=== PATIENT | male | born 1940 | race Caucasian/White ===

== ENCOUNTER 2021-08-08 07:03 | Inpatient (IN) | payer BC ==
[~2021-08-08] VITALS: Ht 177.8 cm; Wt 110.0 kg
[2021-08-08] VITALS (7 sets, daily range): BP systolic 89–138; BP diastolic 58–76
[2021-08-08] MEDS ORDERED: fentaNYL PF VIAL 100 MCG/2 ML VIAL IVP ONE (07:15)
--- NOTE | 2021-08-08 07:18 | ED.ADGEN ---
General Adult EDM: Chief Complaint: MECHANICAL FALL HPI: HPI: Patient is a 80 year old male coming in via EMS from home for right hip pain. Patient states he was going out to get the newspaper and lost his balance fell to his right side. Patient denies any head injury or loss conscious. Patient does not take medication but also does not see a provider regularly. Denies any history of prior injury to his right hip. Review of Systems: Review of Systems: All other systems within normal limits except for as noted in the HPI Current Medications: Current Medications Medications (Trade) Dose Ordered Sig/Mayra Start Time Stop Time Status Last Admin Dose Admin Diphtheria/ Tetanus/Acell Pertussis (Boostrix) 0.5 ml ONCE ONCE 08/08/21 07:30 08/08/21 07:31 DC 08/08/21 07:34 0.5 ML Fentanyl Citrate (Fentanyl 2ml Vial) 75 mcg 1X ONCE 08/08/21 07:15 08/08/21 07:16 DC 08/08/21 07:32 75 MCG Allergies: Allergies: Allergies Coded Allergies Type Severity Reaction Last Updated Verified No Known Drug Allergies 08/08/21 No Physical Exam: PE: Constitutional: Well developed, well nourished, no acute distress, non-toxic a ppearance. [] HENT: Normocephalic, atraumatic, bilateral external ears normal, nose normal. [] Eyes: PERRLA, conjunctiva normal, no discharge. [] Neck: No rigidity, supple, no stridor. [] Cardiovascular: Regular rate and rhythm, brisk cap refill [] Lungs & Thorax: Non labored symmetric respirations, no tachypnea or respiratory distress. No chest wall tenderness pulm [] Abdomen: Soft, nondistended, nontender to palp. Skin: Warm, dry, no erythema, no rash. Skin tear on right forearm [] Back: Unremarkable Extremities: No deformities, range of motion grossly intact, no lower extremity edema. Right lower extremity externally rotated and shortened. Tenderness palpation of right hip and right knee. Neurovascular intact in distal right lower extremity. Neurologic: Alert and oriented X 3, no focal deficits noted. [] Psychologic: Affect normal, judgement normal, mood normal. [] Current Patient Data: Labs: Laboratory Tests Test 08/08/21 07:15 08/08/21 07:36 White Blood Count 7.4 x10^3/uL (4.0-11.0) Red Blood Count 5.21 x10^6/uL (4.30-5.70) Hemoglobin 16.9 g/dL (13.0-17.5) Hematocrit 48.9 % (39.0-53.0) Mean Corpuscular Volume 94 fL (79-100) Mean Corpuscular Hemoglobin 32 pg (25-35) Mean Corpuscular Hemoglobin Concent 35 g/dL (31-37) Red Cell Distribution Width 13.1 % (11.5-14.5) Platelet Count 167 x10^3/uL (140-400) Neutrophils (%) (Auto) 71 % (31-73) Lymphocytes (%) (Auto) 20 % (24-48) L Monocytes (%) (Auto) 8 % (0-9) Eosinophils (%) (Auto) 1 % (0-3) Basophils (%) (Auto) 0 % (0-3) Neutrophils # (Auto) 5.2 x10^3/uL (1.8-7.7) Lymphocytes # (Auto) 1.5 x10^3/uL (1.0-4.8) Monocytes # (Auto) 0.6 x10^3/uL (0.0-1.1) Eosinophils # (Auto) 0.1 x10^3/uL (0.0-0.7) Basophils # (Auto) 0.0 x10^3/uL (0.0-0.2) Prothrombin Time 13.4 SEC (11.7-14.0) Prothrombin Time INR 1.1 (0.8-1.1) Sodium Level 136 mmol/L (136-145) Potassium Level 4.6 mmol/L (3.5-5.1) Chloride Level 104 mmol/L (98-107) Carbon Dioxide Level 25 mmol/L (21-32) Anion Gap 7 (6-14) Blood Urea Nitrogen 16 mg/dL (8-26) Creatinine 1.3 mg/dL (0.7-1.3) Estimated GFR (Cockcroft-Gault) 52.9 BUN/Creatinine Ratio 12 (6-20) Glucose Level 96 mg/dL (70-99) Calcium Level 8.4 mg/dL (8.5-10.1) L Total Bilirubin 0.7 mg/dL (0.2-1.0) Aspartate Amino Transferase (AST) 18 U/L (15-37) Alanine Aminotransferase (ALT) 16 U/L (16-63) Alkaline Phosphatase 97 U/L (46-116) XW-Bqi-C-Type Natriuretic Peptide 218 pg/mL (0-449) Total Protein 7.8 g/dL (6.4-8.2) Albumin 3.2 g/dL (3.4-5.0) L Albumin/Globulin Ratio 0.7 (1.0-1.7) L Influenza Type A Antigen Negative (NEGATIVE) Influenza Type B Antigen Negative (NEGATIVE) SARS-CoV-2 Antigen (Rapid) Negative (NEGATIVE) Laboratory Tests 08/08/21 07:15 Laboratory Tests 08/08/21 07:15 Vital Signs: Vital Signs Date Time Temp Pulse Resp B/P (MAP) Pulse Ox O2 Delivery O2 Flow Rate FiO2 08/08/21 07:32 16 08/08/21 07:20 78 162/80 (107) 98 Room Air 08/08/21 07:03 97.8 97.8 EKG: EKG: Sinus rhythm, heart rate 70s per minute, normal axis, no STEMI [] Heart Score: C/O Chest Pain: No Risk Factors: Risk Factors: DM, Current or recent (<one month) smoker, HTN, HLP, family history of CAD, obesity. Risk Scores: Score 0 - 3: 2.5% MACE over next 6 weeks - Discharge Home Score 4 - 6: 20.3% MACE over next 6 weeks - Admit for Clinical Observation Score 7 - 10: 72.7% MACE over next 6 weeks - Early Invasive Strategies Radiology/Procedures: Radiology/Procedures: [facility] [address] [place], [place] [id number] IMAGING REPORT Signed PATIENT: JOSÉ MIGUEL REED ACCOUNT: [id number] : 1940 LOCATION: ER AGE: 80 SEX: M EXAM STATUS: REG ER ORD. PHYSICIAN: MARK SANON MD REASON: fracture EVAL PROCEDURE: CT PELVIS WO CONTRAST CT scan of the pelvis without contrast 08/08/2021 CLINICAL HISTORY: Fall. Right hip pain. Right femoral neck fracture seen on radiographs of the pelvis. TECHNIQUE: Unenhanced contiguous, 0.625 mm axial sections were obtained through the pelvis and both hips. 3 mm reconstructed sagittal, axial and coronal images were obtained. One or more of the following individualized dose reduction techniques were utilized for this study: 1. Automated exposure control. 2. Adjustment of the mA and/or kV according to patient size. 3. Use of iterative reconstruction technique. FINDINGS: Comparison is made to radiographs of the right hip performed earlier today. There is diffuse osteopenia the visualized bony structures. An acute comminuted subcapital fracture of the right femoral neck is seen. The fracture fragments are slightly impacted inferiorly. The major distal fracture fragment is displaced anteriorly, laterally and slightly superiorly. No dislocation is seen. No additional fracture is noted. Moderate degenerative changes are seen involving the visualized lumbar spine. Moderate degenerative changes are seen involving both SI joints. Mild to moderate degenerative changes are seen involv ing both hips. The left hip is intact. Atherosclerotic calcification of the distal abdominal aorta and its branches is seen. The prostate gland is enlarged likely related to BPH. Calcifications are seen within the pelvis consistent phleboliths. IMPRESSION: Acute comminuted subcapital fracture of the right femoral neck as discussed above. Electronically signed by: John Julian MD (08/08/2021 8:32 AM) [id number] DICTATED and SIGNED BY: JOHN JULIAN MD DATE: 08/08/21817 [][facility] [address] [place] [address] IMAGING REPORT Signed PATIENT: JOSÉ MIGUEL REED ACCOUNT: [id number] : 1940 LOCATION: ER AGE: 80 SEX: M EXAM STATUS: PRE ER ORD. PHYSICIAN: MARK SANON MD REASON: fall, rt knee pain PROCEDURE: KNEE RIGHT 2V XR KNEE_RT 1-2 VIEWS History: Reason: fall, rt knee pain / Spl. Instructions: / History: Technique: 2 views right knee Comparison: None. Findings: Moderate knee degenerative changes most prominent within the medial and patellofemoral compartment. Minimal knee joint effusion. No dislocation. No acute fracture. Impression: 1. No acute osseous abnormality. Electronically signed by: Kendell Tiwari DO (08/08/2021 7:49 AM) [id number] DICTATED and SIGNED BY: KENDELL TIAWRI DO DATE: 08/08/21 0748 [facility] [address] [place] [address] IMAGING REPORT Signed PATIENT: JOSÉ MIGUEL REED ACCOUNT: [id number] : 1940 LOCATION: ER AGE: 80 SEX: M EXAM STATUS: REG ER ORD. PHYSICIAN: MARK SANON MD REASON: fall PROCEDURE: CT HEAD AND CERVICAL SPINE WO CT HEAD AND C-SPINE WO Date: 08/08/2021 7:23 AM Clinical Indication: Pain, fall Comparison: None. Technique: 5 mm axial tomographic images were obtained of the head without contrast. These were viewed on brain and bone windows. Noncontrast CT of the cervical spine was performed. Sagittal and coronal reformats were performed and evaluated. One or more of the following dose reduction techniques were utilized: Automated exposure control (AEC), Adjustment of mA and/or kV according to patient size, Use of iterative reconstruction technique such as ASiR, CT scan done according to ALARA and image gently/image wisely HEAD FINDINGS: Mild generalized cerebral and cerebellar volume loss. Mild nonspecific perive ntricular hypoattenuation, most commonly seen with chronic small vessel ischemic disease. No intra- or extra-axial mass or fluid collection. No acute hemorrhage. The ventricles are normal in size, shape, and morphology. The urban-white matter junction is normal. The basilar cisterns are patent. The visualized paranasal sinuses are normal. The visualized portions of the orbits and globes are normal. The mastoid air cells are clear. No aggressive osseous lesion or fracture. CERVICAL SPINE FINDINGS: Postsurgical changes of multilevel posterior decompression with posterior instrumentation at C3-C7 and ACDF at C5-C7 The cervical spine is normally aligned. No acute fracture. No aggressive lytic or blastic osseous lesions. Moderate multilevel degenerative disc space height loss. Multilevel moderate to severe spinal canal stenosis secondary to disc protrusions and marginal osteophytes. Multilevel moderate neuroforaminal narrowing secondary to uncovertebral arthrosis. Multilevel moderate facet arthrosis. The thyroid gland is normal. No cervical lymphadenopathy. Bilateral carotid at herosclerosis. The visualized aerodigestive tract is normal. The visualized portions of the lungs are clear. IMPRESSION: 1. No acute intracranial process. 2. No acute cervical spine fracture. Electronically signed by: Ashwini Cardona MD (08/08/2021 8:07 AM) [id number] DICTATED and SIGNED BY: ASHWINI CARDONA MD DATE: 08/08/21 [address] [place] [address] IMAGING REPORT Signed PATIENT: JOSÉ MIGUEL REED ACCOUNT: [id number] : 1940 LOCATION: ER AGE: 80 SEX: M EXAM STATUS: PRE ER ORD. PHYSICIAN: MARK SANON MD REASON: fall PROCEDURE: PORTABLE CHEST 1V XR CHEST 1V History: Reason: fall / Spl. Instructions: / History: . Pain Comparison: None. Findings: No consolidation or pleural effusion. Normal heart size. No pneumothorax. Impression: 1. No acute cardiopulmonary process. Electronically signed by: Kendell Tiwari DO (08/08/2021 7:45 AM) [id number] DICTATED and SIGNED BY: KENDELL TIWARI DO DATE: 08/08/21 0745 [place] [id number] IMAGING REPORT Signed PATIENT: JOSÉ MIGUEL REED ACCOUNT: [id number] : 1940 LOCATION: ER AGE: 80 SEX: M EXAM STATUS: PRE ER ORD. PHYSICIAN: MARK SANON MD REASON: fall,rt hip pain PROCEDURE: HIP RIGHT 2V WITH PELVIS XR RIGHT HIP (WITH OR WITHOUT PELVIS) 2 VIEWS History: Reason: fall,rt hip pain / Spl. Instructions: / History: Technique: AP view the pelvis and 2 additional views of the right hip. Comparison: None. Findings: Acute displaced overriding right femoral neck fracture. No dislocation. Lower lumbar spondylosis. Mild bilateral hip DJD. Impression: 1. Acute displaced right femoral neck fracture. Electronically signed by: Kendell Tiwari DO (08/08/2021 7:48 AM) [id number] DICTATED and SIGNED BY: KENDELL TIWARI DO DATE: 08/08/21 0746 Course & Med Decision Making: Course & Med Decision Making Pertinent Labs and Imaging studies reviewed. (See chart for details) Consult placed to Dr. Sonali Maldonado who will take the patient to the OR later today or tomorrow. Patient placed on n.p.o. status just in case. Mid to the hospitalist [] Zarina Disclaimer: Zarina Disclaimer: This electronic medical record was generated, in whole or in part, using a voice recognition dictation system. Departure Departure Impression: Primary Impression: Fall Additional Impression: Closed right hip fracture Disposition: ADMITTED INPATIENT Admitting Physician: THIEN Condition: STABLE Problem Qualifiers MARK SANON MD Aug 08, 2021 07:18
[2021-08-08] MEDS ORDERED: DIPHTH,PERTUSS(ACELL),TET TOX 0.5 ML DISP.SYRIN. VAX IM ONE (07:30)
[2021-08-08 07:31] LABS: BASO % 0 % (0-3); EOS # 0.1 x10^3/uL (0.0-0.7); EOS % 1 % (0-3); HEMATOCRIT 48.9 % (39.0-53.0); HEMOGLOBIN 16.9 g/dL (13.0-17.5); LYMPH # 1.5 x10^3/uL (1.0-4.8); LYMPH % 20 % (24-48); MEAN CORPUSCULAR HEMOGLOBIN 32 pg (25-35); MEAN CORPUSCULAR HGB CONC 35 g/dL (31-37); MEAN CORPUSCULAR VOLUME 94 fL (79-100); MONO # 0.6 x10^3/uL (0.0-1.1); MONO % 8 % (0-9); NEUT # 5.2 x10^3/uL (1.8-7.7); NEUT % 71 % (31-73); PLATELET COUNT 167 x10^3/uL (140-400); RED BLOOD COUNT 5.21 x10^6/uL (4.30-5.70); RED CELL DISTRIBUTION WIDTH 13.1 % (11.5-14.5); WHITE BLOOD COUNT 7.4 x10^3/uL (4.0-11.0)
[2021-08-08 07:40] LABS: CALCIUM 8.4 mg/dL (8.5-10.1); CREATININE 1.3 mg/dL (0.7-1.3); GFR 52.9; POTASSIUM 4.6 mmol/L (3.5-5.1)
[2021-08-08] MEDS ORDERED: PROMETHAZINE 12.5 MG TABLET. PO ONE (07:45)
[2021-08-08 07:46] LABS: ALBUMIN 3.2 g/dL (3.4-5.0); ALBUMIN/GLOBULIN RATIO 0.7 (1.0-1.7); TOTAL BILIRUBIN 0.7 mg/dL (0.2-1.0); TOTAL PROTEIN 7.8 g/dL (6.4-8.2)
--- NOTE | 2021-08-08 07:48 | RAD ---
XR CHEST 1V History: Reason: fall / Spl. Instructions: / History: . Pain Comparison: None. Findings: No consolidation or pleural effusion. Normal heart size. No pneumothorax. Impression: 1. No acute cardiopulmonary process. Electronically signed by: Kendell Tiwari DO (08/08/2021 7:45 AM) [id number]
--- NOTE | 2021-08-08 07:50 | RAD ---
XR RIGHT HIP (WITH OR WITHOUT PELVIS) 2 VIEWS History: Reason: fall,rt hip pain / Spl. Instructions: / History: Technique: AP view the pelvis and 2 additional views of the right hip. Comparison: None. Findings: Acute displaced overriding right femoral neck fracture. No dislocation. Lower lumbar spondylosis. Mil d bilateral hip DJD. Impression: 1. Acute displaced right femoral neck fracture. Electronically signed by: Kendell Tiwari DO (08/08/2021 7:48 AM) [id number]
--- NOTE | 2021-08-08 07:51 | RAD ---
XR KNEE_RT 1-2 VIEWS History: Reason: fall, rt knee pain / Spl. Instructions: / History: Technique: 2 views right knee Comparison: None. Findings: Moderate knee degenerative changes most prominent within the medial and patellofemoral compartment. M inimal knee joint effusion. No dislocation. No acute fracture. Impression: 1. No acute osseous abnormality. Electronically signed by: Kendell Tiwari DO (08/08/2021 7:49 AM) [id number]
--- NOTE | 2021-08-08 08:10 | RAD ---
CT HEAD AND C-SPINE WO Date: 08/08/2021 7:23 AM Clinical Indication: Pain, fall Comparison: None. Technique: 5 mm axial tomographic images were obtained of the head without contrast. These were view ed on brain and bone windows. Noncontrast CT of the cervical spine was performed. Sagittal and nielson l reformats were performed and evaluated. One or more of the following dose reduction techniques were utilized: Automated exposure control (AEC), Adjustment of mA and/or kV according to patient size, Us e of iterative reconstruction technique such as ASiR, CT scan done according to ALARA and image gentl y/image wisely HEAD FINDINGS: Mild generalized cerebral and cerebellar volume loss. Mild nonspecific periventricular hypoattenuatio n, most commonly seen with chronic small vessel ischemic disease. No intra- or extra-axial mass or fluid collection. No acute hemorrhage. The ventricles are normal in size, shape, and morphology. The urban-white matter junction is normal. The basilar cisterns are paten t. The visualized paranasal sinuses are normal. The visualized portions of the orbits and globes are no rmal. The mastoid air cells are clear. No aggressive osseous lesion or fracture. CERVICAL SPINE FINDINGS: Postsurgical changes of multilevel posterior decompression with posterior instrumentation at C3-C7 an d ACDF at C5-C7 The cervical spine is normally aligned. No acute fracture. No aggressive lytic or blastic osseous les ions. Moderate multilevel degenerative disc space height loss. Multilevel moderate to severe spinal canal s tenosis secondary to disc protrusions and marginal osteophytes. Multilevel moderate neuroforaminal na rrowing secondary to uncovertebral arthrosis. Multilevel moderate facet arthrosis. The thyroid gland is normal. No cervical lymphadenopathy. Bilateral carotid atherosclerosis. The visu alized aerodigestive tract is normal. The visualized portions of the lungs are clear. IMPRESSION: 1. No acute intracranial process. 2. No acute cervical spine fracture. Electronically signed by: Zeke Joyner MD (08/08/2021 8:07 AM) [id number]
[2021-08-08 08:30] LABS: INFLUENZA A PATIENT NEGATIVE (NEGATIVE); INFLUENZA B PATIENT NEGATIVE (NEGATIVE)
--- NOTE | 2021-08-08 08:35 | RAD ---
CT scan of the pelvis without contrast 08/08/2021 CLINICAL HISTORY: Fall. Right hip pain. Right femoral neck fracture seen on radiographs of the pelvis . TECHNIQUE: Unenhanced contiguous, 0.625 mm axial sections were obtained through the pelvis and both h ips. 3 mm reconstructed sagittal, axial and coronal images were obtained. One or more of the following individualized dose reduction techniques were utilized for this study: 1. Automated exposure control. 2. Adjustment of the mA and/or kV according to patient size. 3. Use of iterative reconstruction technique. FINDINGS: Comparison is made to radiographs of the right hip performed earlier today. There is diffuse osteopenia the visualized bony structures. An acute comminuted subcapital fracture o f the right femoral neck is seen. The fracture fragments are slightly impacted inferiorly. The major distal fracture fragment is displaced anteriorly, laterally and slightly superiorly. No dislocation i s seen. No additional fracture is noted. Moderate degenerative changes are seen involving the visuali zed lumbar spine. Moderate degenerative changes are seen involving both SI joints. Mild to moderate d egenerative changes are seen involving both hips. The left hip is intact. Atherosclerotic calcificati on of the distal abdominal aorta and its branches is seen. The prostate gland is enlarged likely rela bam to BPH. Calcifications are seen within the pelvis consistent phleboliths. IMPRESSION: Acute comminuted subcapital fracture of the right femoral neck as discussed above. Electronically signed by: John Julian MD (08/08/2021 8:32 AM) [id number]
[2021-08-08] MEDS ORDERED: HYDROmorphone 2 MG/ML INJ. IVP ONE (08:45)
[2021-08-08 08:49] LABS: PROTHROMBIN TIME PATIENT 13.4 SEC (11.7-14.0)
[2021-08-08] MEDS: IV NORMAL SALINE 1000ML BAG 1,000 ML IV SCH ×4 (08:54→20:05)
[2021-08-08] MEDS ORDERED: ONDANSETRON PF 4 MG/2 ML VIAL. IVP PRN ×2 (09:00→10:30)
[2021-08-08] MEDS ORDERED: HYDROmorphone 2 MG/ML INJ. IVP PRN ×3 (09:00→12:15)
--- NOTE | 2021-08-08 10:23 | PDOC1 ---
History and Physical Date of Service: DOS: DATE: 08/08/21 TIME: 10:23 Chief Complaint: Chief Complain: Fall with right hip pain History of Present Illness: HPI: 80-year-old male with no significant past medical history comes in for right hip pain after he lost his balance and fell on his right side while he was try to get his newspaper. Denies any head trauma or loss of consciousness. Does not t solitario any medications or see his primary doctor regularly. Denies any fevers, chest pain, abdominal pain, dizziness, syncope, palpitations, dysuria, hematuria or bloody stools. Past Medical/Surgical History: PMH/PSH: Denies any past medical or surgical history Allergies: Allergies: Coded Allergies: No Known Drug Allergies (Unverified , 08/08/21) Family History: Family History: Reviewed with no relative findings in the chart Social History: Social History: Denies any alcohol, tobacco or drug abuse Current Medications: Current Medications Current Medications Fentanyl Citrate (Fentanyl 2ml Vial) 75 mcg 1X ONCE IVP Last administered on 08/08/21at 07:32; Start 08/08/21 at 07:15; Stop 08/08/21 at 07:16; Status DC Diphtheria/ Tetanus/Acell Pertussis (Boostrix) 0.5 ml ONCE ONCE VAX IM Last administered on 08/08/21at 07:34; Start 08/08/21 at 07:30; Stop 08/08/21 at 07:31; Status DC Promethazine HCl (Phenergan) 25 mg 1X ONCE PO ; Start 08/08/21 at 07:45; Stop 08/08/21 at 07:53; Status DC Hydromorphone HCl (Dilaudid) 1 mg 1X ONCE IVP Last administered on 08/08/21at 08:54; Start 08/08/21 at 08:45; Stop 08/08/21 at 08:48; Status DC Ondansetron HCl (Zofran) 4 mg PRN Q8HRS PRN IVP NAUSEA/VOMITING; Start 08/08/21 at 09:00; Stop 08/09/21 at 08:59 Sodium Chloride 1,000 ml @ 100 mls/hr Q10H IV Last administered on 08/08/21at 08:54; Start 08/08/21 at 09:00; Stop 08/09/21 at 08:59 Hydromorphone HCl (Dilaudid) 1 mg PRN Q2HRS PRN IVP MODERATE TO SEVERE PAIN; Start 08/08/21 at 09:00 ROS: Review of Systems Review of System REVIEW OF SYSTEMS: GENERAL: Denies weakness SKIN: No bruising, hair changes or rashes. EYES: No blurred, double or loss of vision. NOSE AND THROAT: No history of nosebleeds, hoarseness or sore throat. HEART: No history of palpitations, chest pain or shortness of breath on exertion. LUNGS: Denies cough, hemoptysis, wheezing or shortness of breath. GASTROINTESTINAL: Denies changes in appetite, nausea, vomiting, diarrhea or constipation. GENITOURINARY: No history of frequency, urgency, hesitancy or nocturia. NEUROLOGIC: Denies history of numbness, tingling, or tremor. PSYCHIATRIC: No history of panic, anxiety or depression. ENDOCRINE: No history of heat or cold intolerance, polyuria or polydipsia. EXTREMITIES: Denies joint pain, pain on walking or stiffness. Physical Exam: Vital Signs: Vital Signs Date Time Temp Pulse Resp B/P (MAP) Pulse Ox O2 Delivery O2 Flow Rate FiO2 08/08/21 09:25 98.7 91 18 127/76 (93) 93 Room Air 98.7 Physcial Exam: GEN: No apparent distress. Alert and oriented HEENT: Normal cephalic, atraumatic, external auditory canals are patent EYES: Extraocular muscles are intact, pupil are equally round and reactive to light and accommodation MUSCULOSKELETAL: Well developed , well nourished, good range of motion ENDOCRINE: No thyromegaly was palpated LYMPHATICS: No cervical chain or axillary nodes were noted HEMATOPOIETIC: No bruising NECK: Supple, no JVD, no thyromegaly was noted LUNGS: Clear to auscultation in all lung anders without rhonchi or wheezing HEART: RRR, S!, S2 present. Peripheral pulses intact, no obvious murmurs noted ABDOMEN: Soft, nontender. Positive bowel sounds, no organomegaly, normal bowel sounds EXTREMITIES: Without clubbing, cyanosis, or edema. Pedal pulses intact. Negative Homans sign NEUROLOGIC: Normal speech and tone. A&O x 3, moves all extremities, no obvious focal deficits PSYCHIATRIC: Normal affect, normal mood. Stable SKIN: No ulcerations or rashes, good skin turgor, no jaundice VASCULAR: Good capillary refill, neurovascular bundle appears to be intact Labs: Labs: Laboratory Tests Test 08/08/21 07:15 08/08/21 07:36 White Blood Count 7.4 x10^3/uL (4.0-11.0) Red Blood Count 5.21 x10^6/uL (4.30-5.70) Hemoglobin 16.9 g/dL (13.0-17.5) Hematocrit 48.9 % (39.0-53.0) Mean Corpuscular Volume 94 fL (79-100) Mean Corpuscular Hemoglobin 32 pg (25-35) Mean Corpuscular Hemoglobin Concent 35 g/dL (31-37) Red Cell Distribution Width 13.1 % (11.5-14.5) Platelet Count 167 x10^3/uL (140-400) Neutrophils (%) (Auto) 71 % (31-73) Lymphocytes (%) (Auto) 20 % (24-48) Monocytes (%) (Auto) 8 % (0-9) Eosinophils (%) (Auto) 1 % (0-3) Basophils (%) (Auto) 0 % (0-3) Neutrophils # (Auto) 5.2 x10^3/uL (1.8-7.7) Lymphocytes # (Auto) 1.5 x10^3/uL (1.0-4.8) Monocytes # (Auto) 0.6 x10^3/uL (0.0-1.1) Eosinophils # (Auto) 0.1 x10^3/uL (0.0-0.7) Basophils # (Auto) 0.0 x10^3/uL (0.0-0.2) Prothrombin Time 13.4 SEC (11.7-14.0) Prothromb Time International Ratio 1.1 (0.8-1.1) Sodium Level 136 mmol/L (136-145) Potassium Level 4.6 mmol/L (3.5-5.1) Chloride Level 104 mmol/L (98-107) Carbon Dioxide Level 25 mmol/L (21-32) Anion Gap 7 (6-14) Blood Urea Nitrogen 16 mg/dL (8-26) Creatinine 1.3 mg/dL (0.7-1.3) Estimated GFR (Cockcroft-Gault) 52.9 BUN/Creatinine Ratio 12 (6-20) Glucose Level 96 mg/dL (70-99) Calcium Level 8.4 mg/dL (8.5-10.1) Total Bilirubin 0.7 mg/dL (0.2-1.0) Aspartate Amino Transf (AST/SGOT) 18 U/L (15-37) Alanine Aminotransferase (ALT/SGPT) 16 U/L (16-63) Alkaline Phosphatase 97 U/L (46-116) PY-Xqq-T-Type Natriuretic Peptide 218 pg/mL (0-449) Total Protein 7.8 g/dL (6.4-8.2) Albumin 3.2 g/dL (3.4-5.0) Albumin/Globulin Ratio 0.7 (1.0-1.7) Influenza Type A Antigen Negative (NEGATIVE) Influenza Type B Antigen Negative (NEGATIVE) SARS-CoV-2 Antigen (Rapid) Negative (NEGATIVE) Laboratory Tests Test 08/08/21 07:15 08/08/21 07:36 White Blood Count 7.4 x10^3/uL (4.0-11.0) Red Blood Count 5.21 x10^6/uL (4.30-5.70) Hemoglobin 16.9 g/dL (13.0-17.5) Hematocrit 48.9 % (39.0-53.0) Mean Corpuscular Volume 94 fL (79-100) Mean Corpuscular Hemoglobin 32 pg (25-35) Mean Corpuscular Hemoglobin Concent 35 g/dL (31-37) Red Cell Distribution Width 13.1 % (11.5-14.5) Platelet Count 167 x10^3/uL (140-400) Neutrophils (%) (Auto) 71 % (31-73) Lymphocytes (%) (Auto) 20 % (24-48) Monocytes (%) (Auto) 8 % (0-9) Eosinophils (%) (Auto) 1 % (0-3) Basophils (%) (Auto) 0 % (0-3) Neutrophils # (Auto) 5.2 x10^3/uL (1.8-7.7) Lymphocytes # (Auto) 1.5 x10^3/uL (1.0-4.8) Monocytes # (Auto) 0.6 x10^3/uL (0.0-1.1) Eosinophils # (Auto) 0.1 x10^3/uL (0.0-0.7) Basophils # (Auto) 0.0 x10^3/uL (0.0-0.2) Prothrombin Time 13.4 SEC (11.7-14.0) Prothromb Time International Ratio 1.1 (0.8-1.1) Sodium Level 136 mmol/L (136-145) Potassium Level 4.6 mmol/L (3.5-5.1) Chloride Level 104 mmol/L (98-107) Carbon Dioxide Level 25 mmol/L (21-32) Anion Gap 7 (6-14) Blood Urea Nitrogen 16 mg/dL (8-26) Creatinine 1.3 mg/dL (0.7-1.3) Estimated GFR (Cockcroft-Gault) 52.9 BUN/Creatinine Ratio 12 (6-20) Glucose Level 96 mg/dL (70-99) Calcium Level 8.4 mg/dL (8.5-10.1) Total Bilirubin 0.7 mg/dL (0.2-1.0) Aspartate Amino Transf (AST/SGOT) 18 U/L (15-37) Alanine Aminotransferase (ALT/SGPT) 16 U/L (16-63) Alkaline Phosphatase 97 U/L (46-116) IN-Mhd-X-Type Natriuretic Peptide 218 pg/mL (0-449) Total Protein 7.8 g/dL (6.4-8.2) Albumin 3.2 g/dL (3.4-5.0) Albumin/Globulin Ratio 0.7 (1.0-1.7) Influenza Type A Antigen Negative (NEGATIVE) Influenza Type B Antigen Negative (NEGATIVE) SARS-CoV-2 Antigen (Rapid) Negative (NEGATIVE) Images: Images PROCEDURE: CT PELVIS WO CONTRAST CT scan of the pelvis without contrast 08/08/2021 CLINICAL HISTORY: Fall. Right hip pain. Right femoral neck fracture seen on radiographs of the pelvis. TECHNIQUE: Unenhanced contiguous, 0.625 mm axial sections were obtained through the pelvis and both hips. 3 mm reconstructed sagittal, axial and coronal images were obtained. One or more of the following individualized dose reduction techniques were utilized for this study: 1. Automated exposure control. 2. Adjustment of the mA and/or kV according to patient size. 3. Use of iterative reconstruction technique. FINDINGS: Comparison is made to radiographs of the right hip performed earlier today. There is diffuse osteopenia the visualized bony structures. An acute comminuted subcapital fracture of the right femoral neck is seen. The fracture fragments are slightly impacted inferiorly. The major distal fracture fragment is displaced anteriorly, laterally and slightly superiorly. No dislocation is seen. No additional fracture is noted. Moderate degenerative changes are seen involving the visualized lumbar spine. Moderate degenerative changes are seen involving both SI joints. Mild to moderate degenerative changes are seen involving both hips. The left hip is intact. Atherosclerotic calcification of the distal abdominal aorta and its branches is seen. The prostate gland is enlarged likely related to BPH. Calcifications are seen within the pelvis consistent phleboliths. IMPRESSION: Acute comminuted subcapital fracture of the right femoral neck as discussed above. PROCEDURE: CT HEAD AND CERVICAL SPINE WO CT HEAD AND C-SPINE WO Date: 08/08/2021 7:23 AM Clinical Indication: Pain, fall Comparison: None. Technique: 5 mm axial tomographic images were obtained of the head without contrast. These were viewed on brain and bone windows. Noncontrast CT of the cervical spine was performed. Sagittal and coronal reformats were performed and evaluated. One or more of the following dose reduction techniques were utilized: Automated exposure control (AEC), Adjustment of mA and/or kV according to patient size, Use of iterative reconstruction technique such as ASiR, CT scan done according to ALARA and image gently/image wisely HEAD FINDINGS: Mild generalized cerebral and cerebellar volume loss. Mild nonspecific periventricular hypoattenuation, most commonly seen with chronic small vessel ischemic disease. No intra- or extra-axial mass or fluid collection. No acute hemorrhage. The ventricles are normal in size, shape, and morphology. The urban-white matter junction is normal. The basilar cisterns are patent. The visualized paranasal sinuses are normal. The visualized portions of the orbits and globes are normal. The mastoid air cells are clear. No aggressive osseous lesion or fracture. CERVICAL SPINE FINDINGS: Postsurgical changes of multilevel posterior decompression with posterior instrumentation at C3-C7 and ACDF at C5-C7 The cervical spine is normally aligned. No acute fracture. No aggressive lytic or blastic osseous lesions. Moderate multilevel degenerative disc space height loss. Multilevel moderate to severe spinal canal stenosis secondary to disc protrusions and marginal osteophytes. Multilevel moderate neuroforaminal narrowing secondary to uncovertebral arthrosis. Multilevel moderate facet arthrosis. The thyroid gland is normal. No cervical lymphadenopathy. Bilateral carotid atherosclerosis. The visualized aerodigestive tract is normal. The visualized portions of the lungs are clear. IMPRESSION: 1. No acute intracranial process. 2. No acute cervical spine fracture. PROCEDURE: PORTABLE CHEST 1V XR CHEST 1V History: Reason: fall / Spl. Instructions: / History: . Pain Comparison: None. Findings: No consolidation or pleural effusion. Normal heart size. No pneumothorax. Impression: 1. No acute cardiopulmonary process. Assessment/Plan Assessment/Plan Acute right femoral neck fracture status post mechanical fall Obesity class II Admit to hospitalist service for further management Ortho consult PT OT PO and IV pain control Lovenox for DVT prophylaxis, will deferred to orthopedics for outpatient DVT prophylaxis NPO CODE STATUS full Discussed with RN and SW Disposition inpatient management as above DPOA: Carley Escobar Justifications for Admission Other Justification Hip Fracture YUDITH NOYOLA MD Aug 08, 2021 10:23
[2021-08-08] MEDS ORDERED: diphenhydrAMINE HCL 25 MG CAPSULE PO PRN ×2 (10:30)
[2021-08-08] MEDS ORDERED: ACETAMINOPHEN 325 MG TABLET. PO PRN (10:30)
[2021-08-08] MEDS ORDERED: DEXTROSE 50% 25 GM / 50ML DISP.SYRIN. IV PRN ×2 (10:30→12:00)
[2021-08-08] MEDS ORDERED: SENNOSIDES 8.6 MG TABLET PO PRN (10:30)
[2021-08-08] MEDS ORDERED: MORPHINE SULFATE 2 MG/ML INJ. IV PRN (10:30)
[2021-08-08] MEDS ORDERED: PROCHLORPERAZINE 10 MG/2 ML VIAL. IV PRN (10:30)
[2021-08-08] MEDS ORDERED: ceFAZolin SODIUM IV Push 1 GM VIAL. IVP PRN (10:45)
--- NOTE | 2021-08-08 10:54 | PDOC2 ---
CONSULT Date of Consult Date of Consult DATE: 08/08/21 TIME: 10:42 Reason for Consult Reason for Consult: Right femoral neck fracture Referring Physician Referring Physician: ED physician Identification/Chief Complaint Chief Complaint Right hip pain History of Present Illness Reason for Visit: Praveen Escobar is a very pleasant 80-year-old male patient who presented to the emergency department at [facility] also noted this morning secondary to right hip pain following a ground-level fall from standing. Initial work-up in the emergency department found the patient to have a right femoral neck fracture. He was subsequently admitted to the hospitalist services and orthopedics was consulted for evaluation and management. Upon evaluation at bedside this morning patient is found to be awake and alert lying supine in bed. He is complaining of severe pain and discomfort to the right hip region. Pain is made worse with any type of weightbearing and/or movement of the right lower extremity. Relief with IV narcotic pain medication and rest. Patient denies any previous history of injury to the right hip in the past. No antecedent pain in the right hip prior to his fall. Patient states he was ambulating in his driveway earlier this morning at around 330 attempting to obtain the newspaper when he suddenly and unexpectedly fell from standing landing directly on his buttock. Patient denies striking his head and or sustaining any loss of consciousness. No antecedent chest pain, shortness of breath, dizziness, lightheadedness or palpitations prior to falling. He was unable to rise and ambulate. Emergency services were summoned to the home the patient was subsequently brought to the emergency department for further care. Patient reports he lives locally with his . He is independent of activities of daily living. He denies use of any assistive devices on a regular basis. Patient denies taking any oral blood thinning medications. He states his last oral intake was at approximately 330 this morning when he ate 3 cookies and drank a cup of coffee. Prior to his fall this morning patient states he was feeling rather well and in his normal state of health. No additional complaints are reported at this time. Past Medical History Past Medical History Denies Past Surgical History Past Surgical History Denies Family History Family History Noncontributory Social History Social History Patient is a local resident. He lives at home with his . He is retired. He denies use of any assistive devices. Current Problem List Problem List Problems Medical Problems: (1) Closed right hip fracture Status: Acute (2) Fall Status: Acute Current Medications Current Medications Current Medications Fentanyl Citrate (Fentanyl 2ml Vial) 75 mcg 1X ONCE IVP Last administered on 08/08/21at 07:32; Start 08/08/21 at 07:15; Stop 08/08/21 at 07:16; Status DC Diphtheria/ Tetanus/Acell Pertussis (Boostrix) 0.5 ml ONCE ONCE VAX IM Last administered on 08/08/21at 07:34; Start 08/08/21 at 07:30; Stop 08/08/21 at 07:31; Status DC Promethazine HCl (Phenergan) 25 mg 1X ONCE PO ; Start 08/08/21 at 07:45; Stop 08/08/21 at 07:53; Status DC Hydromorphone HCl (Dilaudid) 1 mg 1X ONCE IVP Last administered on 08/08/21at 08:54; Start 08/08/21 at 08:45; Stop 08/08/21 at 08:48; Status DC Ondansetron HCl (Zofran) 4 mg PRN Q8HRS PRN IVP NAUSEA/VOMITING; Start 08/08/21 at 09:00; Stop 08/09/21 at 08:59 Sodium Chloride 1,000 ml @ 100 mls/hr Q10H IV Last administered on 08/08/21at 08:54; Start 08/08/21 at 09:00; Stop 08/09/21 at 08:59 Hydromorphone HCl (Dilaudid) 1 mg PRN Q2HRS PRN IVP MODERATE TO SEVERE PAIN; Start 08/08/21 at 09:00 Sennosides (Senna) 17.2 mg PRN BID PRN PO CONSTIPATION; Start 08/08/21 at 10:30; Status UNV Docusate Sodium (Colace) 100 mg PRN DAILY PRN PO HARD STOOLS; Start 08/08/21 at 10:30; Status UNV Ondansetron HCl (Zofran) 4 mg PRN Q6HRS PRN IVP NAUSEA/VOMITING, 1st CHOICE; Start 08/08/21 at 10:30; Status UNV Dextrose (Dextrose 50%-Water Syringe) 12.5 gm PRN Q15MIN PRN IV SEE COMMENTS; Start 08/08/21 at 10:30; Status UNV Sodium Chloride 1,000 ml @ 100 mls/hr Q10H IV ; Start 08/08/21 at 10:30; Status UNV Acetaminophen (Tylenol) 650 mg PRN Q4HRS PRN PO TEMP OVER 100.4F OR MILD PAIN; Start 08/08/21 at 10:30; Status UNV Lorazepam (Ativan) 0.5 mg PRN Q6HRS PRN PO ANXIETY / AGITATION; Start 08/08/21 at 10:30; Status UNV Lorazepam (Ativan Inj) 0.25 mg PRN Q4HRS PRN IV ANXIETY / AGITATION; Start 08/08/21 at 10:30; Status UNV Enoxaparin Sodium (Lovenox 40mg Syringe) 40 mg Q24H SQ ; Start 08/08/21 at 10:30; Status UNV Oxycodone/ Acetaminophen (Percocet 5/325) 1 tab PRN Q4HRS PRN PO MILD PAIN, 1ST CHOICE; Start 08/08/21 at 10:30; Status UNV Morphine Sulfate (Morphine Sulfate) 1 mg PRN Q1HR PRN IV PAIN; Start 08/08/21 at 10:30; Status UNV Morphine Sulfate (Morphine Sulfate) 2 mg PRN Q2HR PRN IVP SEVERE PAIN 7-10; Start 08/08/21 at 10:30; Stop 08/09/21 at 10:29; Status UNV Prochlorperazine Edisylate (Compazine) 10 mg PRN Q6HRS PRN IV NAUSEA/VOMITING, 2nd CHOICE; Start 08/08/21 at 10:30; Status UNV Diphenhydramine HCl (Benadryl) 25 mg PRN Q6HRS PRN IVP ITCHING; Start 08/08/21 at 10:30; Status UNV Diphenhydramine HCl (Benadryl) 25 mg PRN Q6HRS PRN PO ITCHING; Start 08/08/21 at 10:30; Status UNV Diphenhydramine HCl (Benadryl) 25 mg PRN QHS PRN PO INSOMNIA, 1st CHOICE; Start 08/08/21 at 10:30; Status UNV Zolpidem Tartrate (Ambien) 2.5 mg PRN QHS PRN PO INSOMNIA, 2nd CHOICE; Start 08/08/21 at 10:30; Status UNV Allergies Allergies: Coded Allergies: No Known Drug Allergies (Unverified , 08/08/21) ROS Review of System A complete 10 point review of systems was performed and found to be negative with exception of those listed in HPI above. Physical Exam Physical Exam Orthopedic examination of the right lower extremity: Skin is warm dry and intact. No visible lacerations or abrasions are noted over the lateral aspect of the right hip. No visible ecchymosis. Right lower extremity shortened and externally rotated on gross inspection. Compartments are threadlike to be are soft compressible and nontender. Patient wiggles all toes on command. EHL/FHL intact. Plantarflexion/dorsiflexion intact. DP pulse present to palpation. Cap refill brisk. Right lower extremity is warm and well-perfused. Active and passive range of motion of the right hip is not assessed at this time due to known right femoral neck fracture and significant pain and discomfort with any type of movement. Remaining live orthopedic examination reveals: No bony tenderness to palpation bilateral upper extremities. Patient is able to actively range his bilateral upper extremities without any pain or discomfort. Neurovascularly intact bilateral upper extremities. No bony tenderness to palpation bilateral clavicles. No bony tenderness to palpation bilateral chest wall. Pelvis is stable to AP and lateral compression. Tenderness palpation over the lateral aspect of the right hip. Negative pelvic rock. No bony tenderness palpation of the left lower extremity. Passive range of motion of the left lower extremity does not elicit any bony crepitation pain or discomfort. Neurovascular intact left lower extremity. No additional obvious orthopedic injuries identified at this time. General: Alert, Oriented X3, Cooperative, No acute distress HEENT: Atraumatic, EOMI Lungs: Normal air movement, Other (No retractions. No accessory muscle use.) Heart: Regular rate Abdomen: Soft, No tenderness Extremities: No cyanosis, No edema Skin: No breakdown, Other (No lacerations or abrasions are noted.) Neuro: Normal speech, Sensation intact Psych/Mental Status: Mental status NL MUSCULOSKELETAL: Other Vitals VITALS Vital Signs Date Time Temp Pulse Resp B/P (MAP) Pulse Ox O2 Delivery O2 Flow Rate FiO2 08/08/21 09:25 98.7 91 18 127/76 (93) 93 Room Air 98.7 Labs Labs Laboratory Tests Test 08/08/21 07:15 08/08/21 07:36 White Blood Count 7.4 x10^3/uL (4.0-11.0) Red Blood Count 5.21 x10^6/uL (4.30-5.70) Hemoglobin 16.9 g/dL (13.0-17.5) Hematocrit 48.9 % (39.0-53.0) Mean Corpuscular Volume 94 fL (79-100) Mean Corpuscular Hemoglobin 32 pg (25-35) Mean Corpuscular Hemoglobin Concent 35 g/dL (31-37) Red Cell Distribution Width 13.1 % (11.5-14.5) Platelet Count 167 x10^3/uL (140-400) Neutrophils (%) (Auto) 71 % (31-73) Lymphocytes (%) (Auto) 20 % (24-48) Monocytes (%) (Auto) 8 % (0-9) Eosinophils (%) (Auto) 1 % (0-3) Basophils (%) (Auto) 0 % (0-3) Neutrophils # (Auto) 5.2 x10^3/uL (1.8-7.7) Lymphocytes # (Auto) 1.5 x10^3/uL (1.0-4.8) Monocytes # (Auto) 0.6 x10^3/uL (0.0-1.1) Eosinophils # (Auto) 0.1 x10^3/uL (0.0-0.7) Basophils # (Auto) 0.0 x10^3/uL (0.0-0.2) Prothrombin Time 13.4 SEC (11.7-14.0) Prothromb Time International Ratio 1.1 (0.8-1.1) Sodium Level 136 mmol/L (136-145) Potassium Level 4.6 mmol/L (3.5-5.1) Chloride Level 104 mmol/L (98-107) Carbon Dioxide Level 25 mmol/L (21-32) Anion Gap 7 (6-14) Blood Urea Nitrogen 16 mg/dL (8-26) Creatinine 1.3 mg/dL (0.7-1.3) Estimated GFR (Cockcroft-Gault) 52.9 BUN/Creatinine Ratio 12 (6-20) Glucose Level 96 mg/dL (70-99) Calcium Level 8.4 mg/dL (8.5-10.1) Total Bilirubin 0.7 mg/dL (0.2-1.0) Aspartate Amino Transf (AST/SGOT) 18 U/L (15-37) Alanine Aminotransferase (ALT/SGPT) 16 U/L (16-63) Alkaline Phosphatase 97 U/L (46-116) HV-Ptq-P-Type Natriuretic Peptide 218 pg/mL (0-449) Total Protein 7.8 g/dL (6.4-8.2) Albumin 3.2 g/dL (3.4-5.0) Albumin/Globulin Ratio 0.7 (1.0-1.7) Influenza Type A Antigen Negative (NEGATIVE) Influenza Type B Antigen Negative (NEGATIVE) SARS-CoV-2 Antigen (Rapid) Negative (NEGATIVE) Laboratory Tests Test 08/08/21 07:15 08/08/21 07:36 White Blood Count 7.4 x10^3/uL (4.0-11.0) Red Blood Count 5.21 x10^6/uL (4.30-5.70) Hemoglobin 16.9 g/dL (13.0-17.5) Hematocrit 48.9 % (39.0-53.0) Mean Corpuscular Volume 94 fL (79-100) Mean Corpuscular Hemoglobin 32 pg (25-35) Mean Corpuscular Hemoglobin Concent 35 g/dL (31-37) Red Cell Distribution Width 13.1 % (11.5-14.5) Platelet Count 167 x10^3/uL (140-400) Neutrophils (%) (Auto) 71 % (31-73) Lymphocytes (%) (Auto) 20 % (24-48) Monocytes (%) (Auto) 8 % (0-9) Eosinophils (%) (Auto) 1 % (0-3) Basophils (%) (Auto) 0 % (0-3) Neutrophils # (Auto) 5.2 x10^3/uL (1.8-7.7) Lymphocytes # (Auto) 1.5 x10^3/uL (1.0-4.8) Monocytes # (Auto) 0.6 x10^3/uL (0.0-1.1) Eosinophils # (Auto) 0.1 x10^3/uL (0.0-0.7) Basophils # (Auto) 0.0 x10^3/uL (0.0-0.2) Prothrombin Time 13.4 SEC (11.7-14.0) Prothromb Time International Ratio 1.1 (0.8-1.1) Sodium Level 136 mmol/L (136-145) Potassium Level 4.6 mmol/L (3.5-5.1) Chloride Level 104 mmol/L (98-107) Carbon Dioxide Level 25 mmol/L (21-32) Anion Gap 7 (6-14) Blood Urea Nitrogen 16 mg/dL (8-26) Creatinine 1.3 mg/dL (0.7-1.3) Estimated GFR (Cockcroft-Gault) 52.9 BUN/Creatinine Ratio 12 (6-20) Glucose Level 96 mg/dL (70-99) Calcium Level 8.4 mg/dL (8.5-10.1) Total Bilirubin 0.7 mg/dL (0.2-1.0) Aspartate Amino Transf (AST/SGOT) 18 U/L (15-37) Alanine Aminotransferase (ALT/SGPT) 16 U/L (16-63) Alkaline Phosphatase 97 U/L (46-116) PJ-Rrg-W-Type Natriuretic Peptide 218 pg/mL (0-449) Total Protein 7.8 g/dL (6.4-8.2) Albumin 3.2 g/dL (3.4-5.0) Albumin/Globulin Ratio 0.7 (1.0-1.7) Influenza Type A Antigen Negative (NEGATIVE) Influenza Type B Antigen Negative (NEGATIVE) SARS-CoV-2 Antigen (Rapid) Negative (NEGATIVE) Images Images X-rays the patient's right hip performed in the emergency department upon initial work-up were reviewed upon consultation. A closed displaced subcapital femoral neck fracture is noted. Assessment/Plan Assessment/Plan 80-year-old male status post ground-level fall from standing Right closed displaced femoral neck fracture * Admit to hospitalist service for medical optimization and clearance prior to proceeding with surgery * Nonweightbearing affected extremity * Bedrest * Insert Bauer catheter * Preoperative antibiotics; 2 g of Ancef prior to incision * DVT prophylaxis (hold chemical prophylaxis with plans for OR today pending clearance from the hospitalist service; optimize mechanical prophylaxis with SCDs and JAENLL hose) * PT/OT evaluation postoperatively * Type and screen * Consent for surgery; right hip hemiarthroplasty and all clinically indicated procedures * I had a very long in-depth discussion with the patient at bedside regarding the risk and benefits of surgical versus nonsurgical treatment for their hip fracture. Risks of surgery include but are certainly not limited to infection, blood loss, damage to neurovascular structures both adjacent and remote, iatrogenic fracture, postoperative dislocation, acetabular erosion, poor wound healing, need for repeat surgery, BCIS, DVT, PE, other imponderables and the risks of anesthesia up to and including heart attack stroke and even . Patient verbalized understanding and was given ample opportunity to ask any questions and/or have any concerns addressed. Due to the increased morbidity mortality associated with hip fractures in this age population would recommend surgical treatment. All the patient's questions and concerns were answered to their satisfaction. Understanding the potential risks and pitfalls associated with surgical treatment the patient has agreed and chosen to proceed. * Will plan to proceed to the OR today for surgical fixation of the right hip pending clearance from the hospitalist service. LAURE HENSON Aug 08, 2021 10:54
[2021-08-08] MEDS: ENOXAPARIN 40 MG/0.4 ML SYRINGE. SQ SCH (11:00)
[2021-08-08] MEDS ORDERED: ceFAZolin 2GM PREMIX 2 GM/50 ML BAG IV ONE (11:05)
[2021-08-08] MEDS ORDERED: 0.9 % SODIUM CHLORIDE 10 ML DISP.SYRIN. IV PRN (12:00)
[2021-08-08] MEDS ORDERED: IV DEXTROSE 5% 250 ML BAG. IV PRN (12:00)
[2021-08-08] MEDS ORDERED: fentaNYL PF VIAL 100 MCG/2 ML VIAL ONE (12:08)
[2021-08-08] MEDS ORDERED: TRANEXAMIC ACID in NS IVPB 100 ML ONE (12:09)
[2021-08-08] MEDS ORDERED: IV RINGERS,LACTATED 1000ML 1,000 ML IV SCH ×2 (12:15)
[2021-08-08] MEDS ORDERED: MORPHINE SULFATE 2 MG/ML INJ. IVP PRN ×2 (12:15)
[2021-08-08] MEDS ORDERED: PROCHLORPERAZINE 10 MG/2 ML VIAL. IVP PRN ×2 (12:15)
[2021-08-08] MEDS ORDERED: fentaNYL PF VIAL 100 MCG/2 ML VIAL IVP PRN ×4 (12:15)
[2021-08-08] MEDS ORDERED: fentaNYL PF VIAL 250 MCG/5 ML VIAL ONE (12:22)
[2021-08-08] MEDS ORDERED: SUCCINYLCHOLINE 200 MG/10 ML VIAL. ONE (12:22)
[2021-08-08] MEDS ORDERED: ROCURONIUM 50 MG/5 ML VIAL. ONE (12:38)
[2021-08-08] MEDS ORDERED: LIDOCAINE 2% PF 5 ML VIAL. ONE (12:54)
[2021-08-08] MEDS ORDERED: DEXAMETHASONE SOD PHOS 4 MG/ML VIAL ONE (12:54)
[2021-08-08] MEDS ORDERED: PROPOFOL 10 MG/ML (20ML) VIAL. IV ONE (12:54)
[2021-08-08] MEDS ORDERED: ONDANSETRON PF 4 MG/2 ML VIAL. ONE (12:54)
[2021-08-08] MEDS ORDERED: TV=62ml MORPHINE 5 MG, KETOROLAC 30 MG, ROPIV, EPI INT ART ONE (13:00)
--- NOTE | 2021-08-08 13:51 | PDOC4 ---
OPERATIVE NOTE Date: Date: Aug 08, 2021 Pre-Op Diagnosis: 1. 80-year-old male status post ground-level fall from standing 2. Right closed displaced femoral neck fracture Post-Op Diagnosis: Same Procedure Performed: 1. Right press-fit hip hemiarthroplasty Surgeon: Juliet Anesthesia Type: General Blood Loss: 150 cc Specimans Obtained: Products of right hip hemiarthroplasty. Complications: Patient tolerated procedure well without any apparent complications. Operative Note: See dictation LAURE HENSON Aug 08, 2021 13:51
--- NOTE | 2021-08-08 14:19 | NUR ---
Reassessments from ED cleared on EMAR. NS non administered on EMAR current bag of NS still infusing.
--- NOTE | 2021-08-08 16:04 | RAD ---
Exam: XR RIGHT HIP (WITH OR WITHOUT PELVIS) 2 VIEWS History: Status post hemiarthroplasty Comparison: 08/08/2021 Findings: Postsurgical changes from right proximal femur hemiarthroplasty. Femoral component appears well seate d without evidence of complication. No dislocation. The pubic rami are intact. Mild degenerative gutierrez ges of the left hip. Multiple pelvic phleboliths. Expected subcutaneous gas and fluid in the right la teral hip are consistent with recent instrumentation. Degenerative changes of the lower lumbar spine. Impression: 1. Expected post surgical findings status post right hemiarthroplasty. Electronically signed by: Ahsan Guillen MD (08/08/2021 4:02 PM) [id number]
[2021-08-08] MEDS: oxyCODONE/APAP 5/325 1 TAB TABLET PO PRN (17:08)
[2021-08-08] MEDS: MORPHINE SULFATE 2 MG/ML INJ. IVP PRN ×3 (17:58→22:32)
--- NOTE | 2021-08-08 18:55 | OP ---
DATE OF SURGERY: 08/08/2021 PREOPERATIVE DIAGNOSIS: Subcapital fracture of right hip. POSTOPERATIVE DIAGNOSIS: Subcapital fracture of right hip. PROCEDURE: Right hip hemiarthroplasty. SURGEON: Ranjan Chung Jr, DO BLOW OFF WORKER: SHAKIRA Lance ANESTHESIA: General. COMPLICATIONS: None. ESTIMATED BLOOD LOSS: 150 mL DESCRIPTION OF PROCEDURE: The patient was taken to the operative suite, given general anesthetic, placed in lateral decubitus position with the affected hip upright. The right hip was then prepped and draped in a sterile fashion after he was held carefully with appropriate bracing. Anterolateral approach to the hip was undertaken with incision through skin and subcutaneous tissues down to the iliotibial band, which was split in line with the skin incision. This was carefully taken down to the area of the gluteus medius and minimus, which was identified. The gluteus medius was removed approximately one-third of this on the inferior portion and was removed and retracted anteriorly. The capsule was then easily identifiable and was opened up in an H fashion. The fracture hematoma was subsequently evacuated. This was irrigated and suctioned dry and then using the appropriate guide, the neck cut was made one fingerbreadth above the lesser trochanter. This removed the remainder of the fractured neck. The head was then removed and sized out to be a size 52. The acetabulum was completely intact without any fractures or any loose bodies at this point. After this was irrigated again and suctioned dry, the box worker was used to open up the femoral canal followed by the IM guide and the broaching began at size [address] the way to size 4. Size 4 was then noted to be the most appropriate size for the implant; therefore, this was implanted noted to be stable and secured with the trial. All trials were then placed with a -3 mm head length. This was with the 52 mm acetabular shell. This was reduced, taken through a full range of motion and noted to be stable. This was manually dislocated. All trials were then removed. The size 4 femur was then placed in appropriate position. The head and neck, which was the -3 mm femoral head, followed by the outer acetabular shell with 52 mm, which was then placed. This was reduced, taken through extremes in range of motion, noted to be stable. Capsule was then reapproximated. The gluteus medius and minimus were returned to their original sites of insertion. Iliotibial band was run with appropriate suture. Superficial tissues and skin was reapproximated. Sterile dressing was applied. The patient was then taken from the operative bed to the postoperative bed, taken to the PACU in stable condition. MARIA ELENA/FITZ DR: Graham TID: [id number]
[2021-08-08] MEDS: ZOLPIDEM 5 MG TABLET. PO PRN (22:29)
[2021-08-09 03:28] VITALS: BP 152/77
[2021-08-09] MEDS: IV NORMAL SALINE 1000ML BAG 1,000 ML IV SCH ×3 (05:49→16:30)
[2021-08-09] MEDS ORDERED: ENOXAPARIN 40 MG/0.4 ML SYRINGE. SQ SCH (06:00)
[2021-08-09 06:15] LABS: BASO % 0 % (0-3); EOS % 0 % (0-3); HEMATOCRIT 43.6 % (39.0-53.0); HEMOGLOBIN 14.8 g/dL (13.0-17.5); LYMPH # 0.9 x10^3/uL (1.0-4.8); LYMPH % 8 % (24-48); MEAN CORPUSCULAR HEMOGLOBIN 32 pg (25-35); MEAN CORPUSCULAR HGB CONC 34 g/dL (31-37); MEAN CORPUSCULAR VOLUME 94 fL (79-100); MONO % 8 % (0-9); NEUT % 84 % (31-73); PLATELET COUNT 141 x10^3/uL (140-400); RED BLOOD COUNT 4.65 x10^6/uL (4.30-5.70); RED CELL DISTRIBUTION WIDTH 13.1 % (11.5-14.5)
[2021-08-09 06:39] LABS: CALCIUM 7.9 mg/dL (8.5-10.1); CREATININE 1.2 mg/dL (0.7-1.3); MAGNESIUM 2.1 mg/dL (1.8-2.4); PHOSPHORUS 3.1 mg/dL (2.6-4.7); POTASSIUM 4.7 mmol/L (3.5-5.1)
[2021-08-09 07:00] VITALS: BP 143/77
[2021-08-09] MEDS: oxyCODONE/APAP 5/325 1 TAB TABLET PO PRN ×4 (10:36→19:40)
[2021-08-09] MEDS: ENOXAPARIN 40 MG/0.4 ML SYRINGE. SQ SCH (10:36)
[2021-08-09] MEDS: TAMSULOSIN 0.4 MG CAP.ER.24H. PO SCH (10:36)
--- NOTE | 2021-08-09 10:53 | PDOC ---
[employer] PROGRESS NOTE Date of Service DOS: DATE: 08/09/21 TIME: 10:52 Chief Complaint Chief Complaint Assessment/Plan Acute right femoral neck fracture status post mechanical fall Obesity class II Urinary retention status post Bauer placement Bauer for the next 24 hours Flomax Ortho consult PT OT PO and IV pain control Lovenox for DVT prophylaxis, will deferred to orthopedics for outpatient DVT prophylaxis NPO CODE STATUS full Discussed with RN and SW Disposition inpatient management as above DPOA: Carley Escobar History of Present Illness History of Present Illness 80-year-old male with no significant past medical history comes in for right hip pain after he lost his balance and fell on his right side while he was try to get his newspaper. Denies any head trauma or loss of consciousness. Does not take any medications or see his primary doctor regularly. Denies any fevers, chest pain, abdominal pain, dizziness, syncope, palpitations, dysuria, hematuria or bloody stools. 08/09/2021 No acute events overnight. Patient seen examined bedside. Pain is well controlled. Patient is in good spirits. Pending PT OT evaluation. Will likely need rehab. Urinary retention reported by nurses staff. 1.4 L output from Bauer placement. Vitals/I&O Vitals/I&O: Vital Signs Date Time Temp Pulse Resp B/P (MAP) Pulse Ox O2 Delivery O2 Flow Rate FiO2 08/09/21 10:36 Room Air 08/09/21 07:00 97.9 76 18 143/77 (99) 98 2.0 97.9 I & O 08/08/21 08/08/21 08/09/21 15:00 23:00 07:00 Intake Total 1580 ml Output Total 350 ml Balance 1230 ml Physical Exam General: Alert, Oriented X3, Cooperative, No acute distress Heart: Regular rate Abdomen: Soft, No tenderness Extremities: No cyanosis, No edema Skin: No breakdown, Other (No lacerations or abrasions are noted.) Labs Labs: Laboratory Tests Test 08/09/21 05:10 White Blood Count 12.0 x10^3/uL (4.0-11.0) Red Blood Count 4.65 x10^6/uL (4.30-5.70) Hemoglobin 14.8 g/dL (13.0-17.5) Hematocrit 43.6 % (39.0-53.0) Mean Corpuscular Volume 94 fL (79-100) Mean Corpuscular Hemoglobin 32 pg (25-35) Mean Corpuscular Hemoglobin Concent 34 g/dL (31-37) Red Cell Distribution Width 13.1 % (11.5-14.5) Platelet Count 141 x10^3/uL (140-400) Neutrophils (%) (Auto) 84 % (31-73) Lymphocytes (%) (Auto) 8 % (24-48) Monocytes (%) (Auto) 8 % (0-9) Eosinophils (%) (Auto) 0 % (0-3) Basophils (%) (Auto) 0 % (0-3) Neutrophils # (Auto) 10.0 x10^3/uL (1.8-7.7) Lymphocytes # (Auto) 0.9 x10^3/uL (1.0-4.8) Monocytes # (Auto) 1.0 x10^3/uL (0.0-1.1) Eosinophils # (Auto) 0.0 x10^3/uL (0.0-0.7) Basophils # (Auto) 0.0 x10^3/uL (0.0-0.2) Sodium Level 137 mmol/L (136-145) Potassium Level 4.7 mmol/L (3.5-5.1) Chloride Level 105 mmol/L (98-107) Carbon Dioxide Level 25 mmol/L (21-32) Anion Gap 7 (6-14) Blood Urea Nitrogen 17 mg/dL (8-26) Creatinine 1.2 mg/dL (0.7-1.3) Estimated GFR (Cockcroft-Gault) 58.0 Glucose Level 104 mg/dL (70-99) Calcium Level 7.9 mg/dL (8.5-10.1) Phosphorus Level 3.1 mg/dL (2.6-4.7) Magnesium Level 2.1 mg/dL (1.8-2.4) Assessment and Plan Assessmemt and Plan Problems Medical Problems: (1) Closed right hip fracture Status: Acute (2) Fall Status: Acute Comment Review of Relevant I have reviewed the following items duncan (where applicable) has been applied. Medications: Current Medications Medications (Trade) Dose Ordered Sig/Mayra Route PRN Reason Start Time Stop Time Status Last Admin Dose Admin Enoxaparin Sodium (Lovenox 40mg Syringe) 40 mg Q24H SQ 08/08/21 11:00 08/09/21 10:36 Cefazolin Sodium/ Dextrose 50 ml @ 100 mls/hr Q6H IV 08/08/21 17:00 08/09/21 05:29 DC 08/09/21 05:17 Morphine Sulfate 5 mg/Ketorolac Tromethamine 30 mg/Ropivacaine 60 ml/Epinephrine HCl 0.5 mg/ Miscellaneous 63 ml @ 63 mls/hr 1X PERIOP ONCE INT ART 08/08/21 13:00 08/08/21 13:59 DC 08/08/21 13:19 Fentanyl Citrate (Fentanyl 2ml Vial) 50 mcg PRN Q5MIN PRN IVP MODERATE PAIN 4-6 08/08/21 12:15 08/08/21 20:00 DC 08/08/21 12:16 Prochlorperazine Edisylate (Compazine) 5 mg PACU PRN PRN IVP NAUSEA, MRX1 08/08/21 12:15 08/08/21 20:00 DC 08/08/21 14:56 Tamsulosin HCl (Flomax) 0.4 mg DAILY PO 08/09/21 11:00 08/09/21 10:36 Justifications for Admission Other Justification Hip Fracture YUDITH NOYOLA MD Aug 09, 2021 10:53
[2021-08-09 11:00] VITALS: BP 142/71
[2021-08-09 15:00] VITALS: BP 146/72
[2021-08-09 19:00] VITALS: BP 99/52
[2021-08-09] MEDS: LORazepam 0.5 MG TABLET PO PRN (21:13)
[2021-08-09 22:46] VITALS: BP 141/60
[2021-08-10] MEDS: IV NORMAL SALINE 1000ML BAG 1,000 ML IV SCH ×3 (02:30→21:19)
[2021-08-10 03:42] VITALS: BP 156/65
[2021-08-10] MEDS: oxyCODONE/APAP 5/325 1 TAB TABLET PO PRN ×4 (06:12→21:16)
[2021-08-10 07:00] VITALS: BP 137/111
[2021-08-10 08:32] LABS: BASO % 0 % (0-3); EOS # 0.1 x10^3/uL (0.0-0.7); EOS % 1 % (0-3); HEMATOCRIT 40.3 % (39.0-53.0); HEMOGLOBIN 13.7 g/dL (13.0-17.5); LYMPH # 1.3 x10^3/uL (1.0-4.8); LYMPH % 13 % (24-48); MEAN CORPUSCULAR HEMOGLOBIN 32 pg (25-35); MEAN CORPUSCULAR HGB CONC 34 g/dL (31-37); MEAN CORPUSCULAR VOLUME 94 fL (79-100); MONO # 1.1 x10^3/uL (0.0-1.1); MONO % 11 % (0-9); NEUT # 7.7 x10^3/uL (1.8-7.7); NEUT % 76 % (31-73); PLATELET COUNT 138 x10^3/uL (140-400); RED CELL DISTRIBUTION WIDTH 13.2 % (11.5-14.5); WHITE BLOOD COUNT 10.1 x10^3/uL (4.0-11.0)
[2021-08-10] MEDS: TAMSULOSIN 0.4 MG CAP.ER.24H. PO SCH (08:47)
[2021-08-10 09:07] LABS: CALCIUM 7.6 mg/dL (8.5-10.1); CREATININE 1.3 mg/dL (0.7-1.3); GFR 52.9; MAGNESIUM 1.9 mg/dL (1.8-2.4); POTASSIUM 4.6 mmol/L (3.5-5.1)
--- NOTE | 2021-08-10 10:36 | PDOC ---
[facility] PROGRESS NOTE Date of Service DOS: DATE: 08/10/21 TIME: 10:34 Chief Complaint Chief Complaint Assessment/Plan Acute right femoral neck fracture status post mechanical fall status post right hemiarthroplasty on 08/08/2021 Obesity class II Urinary retention status post Bauer placement Bauer for the next 24 hours Flomax Ortho consult PT OT PO and IV pain control Lovenox for DVT prophylaxis, will deferred to orthopedics for outpatient DVT prophylaxis NPO CODE STATUS full Discussed with RN and SW Disposition inpatient management as above DPOA: Carley Escobar History of Present Illness History of Present Illness 80-year-old male with no significant past medical history comes in for right hip pain after he lost his balance and fell on his right side while he was try to get his newspaper. Denies any head trauma or loss of consciousness. Does not take any medications or see his primary doctor regularly. Denies any fevers, chest pain, abdominal pain, dizziness, syncope, palpitations, dysuria, hematuria or bloody stools. 08/09/2021 No acute events overnight. Patient seen examined bedside. Pain is well controlled. Patient is in good spirits. Pending PT OT evaluation. Will likely need rehab. Urinary retention reported by nurses staff. 1.4 L output from Bauer placement. 08/10/2021 No acute events overnight. Patient seen examined bedside. Adequate urine output through Bauer. Pain is well controlled. Tolerating diet. No bowel movement reported. DC Bauer today. Continue with Flomax. Patient's chart, labs, images were reviewed and discussed with RN Vitals/I&O Vitals/I&O: Vital Signs Date Time Temp Pulse Resp B/P (MAP) Pulse Ox O2 Delivery O2 Flow Rate FiO2 08/10/21 07:56 Room Air 08/10/21 07:00 98.4 79 18 137/111 (120) 96 2.0 98.4 I & O 08/09/21 08/09/21 08/10/21 15:00 23:00 07:00 Intake Total 800 ml 1357 ml Output Total 1000 ml 250 ml Balance -1000 ml 800 ml 1107 ml Physical Exam General: Alert, Oriented X3, Cooperative, No acute distress Heart: Regular rate Abdomen: Soft, No tenderness Extremities: No cyanosis, No edema Skin: No breakdown, Other (No lacerations or abrasions are noted.) Labs Labs: Laboratory Tests Test 08/10/21 08:10 White Blood Count 10.1 x10^3/uL (4.0-11.0) Red Blood Count 4.30 x10^6/uL (4.30-5.70) Hemoglobin 13.7 g/dL (13.0-17.5) Hematocrit 40.3 % (39.0-53.0) Mean Corpuscular Volume 94 fL (79-100) Mean Corpuscular Hemoglobin 32 pg (25-35) Mean Corpuscular Hemoglobin Concent 34 g/dL (31-37) Red Cell Distribution Width 13.2 % (11.5-14.5) Platelet Count 138 x10^3/uL (140-400) Neutrophils (%) (Auto) 76 % (31-73) Lymphocytes (%) (Auto) 13 % (24-48) Monocytes (%) (Auto) 11 % (0-9) Eosinophils (%) (Auto) 1 % (0-3) Basophils (%) (Auto) 0 % (0-3) Neutrophils # (Auto) 7.7 x10^3/uL (1.8-7.7) Lymphocytes # (Auto) 1.3 x10^3/uL (1.0-4.8) Monocytes # (Auto) 1.1 x10^3/uL (0.0-1.1) Eosinophils # (Auto) 0.1 x10^3/uL (0.0-0.7) Basophils # (Auto) 0.0 x10^3/uL (0.0-0.2) Sodium Level 136 mmol/L (136-145) Potassium Level 4.6 mmol/L (3.5-5.1) Chloride Level 104 mmol/L (98-107) Carbon Dioxide Level 28 mmol/L (21-32) Anion Gap 4 (6-14) Blood Urea Nitrogen 19 mg/dL (8-26) Creatinine 1.3 mg/dL (0.7-1.3) Estimated GFR (Cockcroft-Gault) 52.9 Glucose Level 109 mg/dL (70-99) Calcium Level 7.6 mg/dL (8.5-10.1) Magnesium Level 1.9 mg/dL (1.8-2.4) Assessment and Plan Assessmemt and Plan Problems Medical Problems: (1) Closed right hip fracture Status: Acute (2) Fall Status: Acute Comment Review of Relevant I have reviewed the following items duncan (where applicable) has been applied. Medications: Current Medications Medications (Trade) Dose Ordered Sig/Mayra Route PRN Reason Start Time Stop Time Status Last Admin Dose Admin Tamsulosin HCl (Flomax) 0.4 mg DAILY PO 08/09/21 11:00 08/10/21 08:47 Oxycodone/ Acetaminophen (Percocet 5/325) 2 tab PRN Q4HRS PRN PO MODERATE TO SEVERE PAIN 08/09/21 16:00 08/10/21 06:12 Justifications for Admission Other Justification Hip Fracture YUDITH NOYOLA MD August 10, 2021 10:36
[2021-08-10 11:00] VITALS: BP 121/59
[2021-08-10] MEDS: ENOXAPARIN 40 MG/0.4 ML SYRINGE. SQ SCH (11:35)
[2021-08-10 15:00] VITALS: BP 95/47
[2021-08-10 19:00] VITALS: BP 112/57
[2021-08-10] MEDS: LORazepam 0.5 MG TABLET PO PRN (21:16)
[2021-08-10 23:00] VITALS: BP 106/59
[2021-08-11] MEDS: IV NORMAL SALINE 1000ML BAG 1,000 ML IV SCH ×2 (01:31→20:12)
[2021-08-11] MEDS: LORazepam 0.5 MG TABLET PO PRN (02:53)
[2021-08-11] MEDS: diphenhydrAMINE 50 MG/ML VIAL IVP PRN (02:53)
[2021-08-11 03:00] VITALS: BP 111/74
[2021-08-11] MEDS: oxyCODONE/APAP 5/325 1 TAB TABLET PO PRN ×3 (04:03→20:00)
--- NOTE | 2021-08-11 06:18 | EKG ---
[facility] [address] [place] [address] Test Date: 2021-08-08 Test Time: 08:01:42 Pat Name: JOSÉ MIGUEL REED Department: Room: 434 1 Gender: M Gas Technician: : 1940 Requested By: MARK SANON Order Number: [id number] Reading MD: Eitan Mac MD Measurements Intervals [place] Rate: 73 P: 52 WI: 192 QRS: 21 QRSD: 94 T: 68 QT: 390 QTc: 433 Interpretive Statements SINUS RHYTHM Electronically Signed On 08-18-2021 10:47:21 CDT by Eitan Mac MD
[2021-08-11 07:00] VITALS: BP 191/94
[2021-08-11] MEDS: TAMSULOSIN 0.4 MG CAP.ER.24H. PO SCH (07:34)
--- NOTE | 2021-08-11 08:39 | PDOC ---
PROGRESS NOTES Date of Service DATE: 08/11/21 TIME: 08:34 Subjective Subjective POD #3 s/p R hip hemiarthroplasty Patient seen and examined this morning. Awake lying supine in bed. Very pleasant. Conversational. Pain appears to be controlled. Tolerating p.o. intake postoperatively. Denies chest pain or shortness of breath. No abdominal pain or discomfort. No acute events reported overnight. Objective Vital Signs Vital Signs Date Time Temp Pulse Resp B/P (MAP) Pulse Ox O2 Delivery O2 Flow Rate FiO2 08/11/21 07:00 98.1 82 16 191/94 (126) 96 Room Air 98.1 Physical Exam Orthopedic examination right lower extremity: Skin is warm and dry. Surgical dressing intact over the posterior lateral aspect of the right hip. No drainage noted. Compartments are throughout lower extremity are soft and compressible. Cap refill brisk. Right lower extremity is warm and well-perfused. Wiggles toes on command. EHL/FHL intact. Plantarflexion/dorsiflexion intact. Calf nontender. No pain with passive stretch. Dysthetic sensation to light touch diffusely throughout the right lower extremity. No evidence of thrombus. Labs Laboratory Tests Test 08/10/21 08:10 White Blood Count 10.1 x10^3/uL (4.0-11.0) Red Blood Count 4.30 x10^6/uL (4.30-5.70) Hemoglobin 13.7 g/dL (13.0-17.5) Hematocrit 40.3 % (39.0-53.0) Mean Corpuscular Volume 94 fL (79-100) Mean Corpuscular Hemoglobin 32 pg (25-35) Mean Corpuscular Hemoglobin Concent 34 g/dL (31-37) Red Cell Distribution Width 13.2 % (11.5-14.5) Platelet Count 138 x10^3/uL (140-400) Neutrophils (%) (Auto) 76 % (31-73) Lymphocytes (%) (Auto) 13 % (24-48) Monocytes (%) (Auto) 11 % (0-9) Eosinophils (%) (Auto) 1 % (0-3) Basophils (%) (Auto) 0 % (0-3) Neutrophils # (Auto) 7.7 x10^3/uL (1.8-7.7) Lymphocytes # (Auto) 1.3 x10^3/uL (1.0-4.8) Monocytes # (Auto) 1.1 x10^3/uL (0.0-1.1) Eosinophils # (Auto) 0.1 x10^3/uL (0.0-0.7) Basophils # (Auto) 0.0 x10^3/uL (0.0-0.2) Sodium Level 136 mmol/L (136-145) Potassium Level 4.6 mmol/L (3.5-5.1) Chloride Level 104 mmol/L (98-107) Carbon Dioxide Level 28 mmol/L (21-32) Anion Gap 4 (6-14) Blood Urea Nitrogen 19 mg/dL (8-26) Creatinine 1.3 mg/dL (0.7-1.3) Estimated GFR (Cockcroft-Gault) 52.9 Glucose Level 109 mg/dL (70-99) Calcium Level 7.6 mg/dL (8.5-10.1) Magnesium Level 1.9 mg/dL (1.8-2.4) Imaging Plain film x-rays of the patient's pelvis and right hip performed postoperatively on 08/08/2021 were reviewed. Orthopedic hardware in satisfactory alignment with no acute postoperative abnormalities noted. Assessment Assessment 80 y/o M s/p GLF R closed displaced femoral neck fx * s/p R hip hemiarthroplasty 08/08 - Juliet * WBAT RLE * Anterior lateral hip precautions to include no extension past neutral, no adduction past midline, no external rotation past neutral x6 weeks. * PT/OT for mobilization, gait training and fall prevention * ICE operative extremity prn * Maintain surgical dressing; re-enforce as needed * Encourage use of IS while awake * DVT ppx (Lovenox); from an orthopedic standpoint would recommend DVT prophylaxis with Lovenox or other form of oral anticoagulation for a total of 4 weeks postoperatively. * Post-op abx complete * Hgb 13.7 post-op 08/10; VSS * CM for discharge planning; patient living at home independently prior to hospitalization. Anticipate he will likely require rehab versus skilled placement on discharge. Discharge arrangements pending. * Follow-up with orthopedics in 1 to 2 weeks on discharge in the hospital. Call to schedule appointment prior to discharge.[phone] Justicifation of Admission Dx: Justifications for Admission: Justification of Admission Dx: Yes LAURE HENSON August 11, 2021 08:39
[2021-08-11 08:52] LABS: BASO % 1 % (0-3); EOS # 0.1 x10^3/uL (0.0-0.7); EOS % 2 % (0-3); HEMATOCRIT 41.2 % (39.0-53.0); LYMPH # 1.2 x10^3/uL (1.0-4.8); LYMPH % 16 % (24-48); MEAN CORPUSCULAR HEMOGLOBIN 32 pg (25-35); MEAN CORPUSCULAR HGB CONC 34 g/dL (31-37); MEAN CORPUSCULAR VOLUME 93 fL (79-100); MONO # 0.8 x10^3/uL (0.0-1.1); MONO % 12 % (0-9); NEUT # 5.2 x10^3/uL (1.8-7.7); NEUT % 70 % (31-73); PLATELET COUNT 133 x10^3/uL (140-400); RED BLOOD COUNT 4.41 x10^6/uL (4.30-5.70); RED CELL DISTRIBUTION WIDTH 13.1 % (11.5-14.5); WHITE BLOOD COUNT 7.4 x10^3/uL (4.0-11.0)
[2021-08-11 09:11] LABS: CALCIUM 7.6 mg/dL (8.5-10.1); GFR 71.5; MAGNESIUM 2.1 mg/dL (1.8-2.4); POTASSIUM 4.3 mmol/L (3.5-5.1)
[2021-08-11 11:00] VITALS: BP 138/79
[2021-08-11] MEDS: ENOXAPARIN 40 MG/0.4 ML SYRINGE. SQ SCH (11:00)
[2021-08-11 15:00] VITALS: BP 158/62
--- NOTE | 2021-08-11 15:27 | PDOC ---
[facility] PROGRESS NOTE Date of Service DOS: DATE: 08/11/21 TIME: 15:26 Chief Complaint Chief Complaint Assessment/Plan Acute right femoral neck fracture status post mechanical fall status post right hemiarthroplasty on 08/08/2021 Obesity class II Urinary retention status post Bauer placement Bauer for the next 24 hours Flomax Ortho consult PT OT PO and IV pain control Lovenox for DVT prophylaxis, will deferred to orthopedics for outpatient DVT prophylaxis NPO CODE STATUS full Discussed with RN and SW Disposition inpatient management as above DPOA: Carley Escobar History of Present Illness History of Present Illness 80-year-old male with no significant past medical history comes in for right hip pain after he lost his balance and fell on his right side while he was try to get his newspaper. Denies any head trauma or loss of consciousness. Does not take any medications or see his primary doctor regularly. Denies any fevers, chest pain, abdominal pain, dizziness, syncope, palpitations, dysuria, hematuria or bloody stools. 08/09/2021 No acute events overnight. Patient seen examined bedside. Pain is well controlled. Patient is in good spirits. Pending PT OT evaluation. Will likely need rehab. Urinary retention reported by nurses staff. 1.4 L output from Bauer placement. 08/10/2021 No acute events overnight. Patient seen examined bedside. Adequate urine output through Bauer. Pain is well controlled. Tolerating diet. No bowel movement reported. DC Bauer today. Continue with Flomax. Patient's chart, labs, images were reviewed and discussed with RN 5/2 Patient evaluated examined at bedside. No major overnight events. Doing well this morning no complaints of pain. Enjoys working with therapy said that now agreeable to placement. COVID PCR positive however will have to wait 10 days from positive test. He understands this. Otherwise continue current. Discussed with bedside RN. Vitals/I&O Vitals/I&O: Vital Signs Date Time Temp Pulse Resp B/P (MAP) Pulse Ox O2 Delivery O2 Flow Rate FiO2 08/11/21 13:25 Room Air 08/11/21 11:00 98.8 72 18 138/79 (98) 99 98.8 08/11/21 07:35 2.0 I & O 08/10/21 08/10/21 08/11/21 15:00 23:00 07:00 Intake Total 400 ml 200 ml Balance 400 ml 200 ml Physical Exam General: Alert, Oriented X3, Cooperative, No acute distress Heart: Regular rate Abdomen: Soft, No tenderness Extremities: No cyanosis, No edema Skin: No breakdown, Other (No lacerations or abrasions are noted.) Labs Labs: Laboratory Tests Test 08/11/21 08:20 White Blood Count 7.4 x10^3/uL (4.0-11.0) Red Blood Count 4.41 x10^6/uL (4.30-5.70) Hemoglobin 14.0 g/dL (13.0-17.5) Hematocrit 41.2 % (39.0-53.0) Mean Corpuscular Volume 93 fL (79-100) Mean Corpuscular Hemoglobin 32 pg (25-35) Mean Corpuscular Hemoglobin Concent 34 g/dL (31-37) Red Cell Distribution Width 13.1 % (11.5-14.5) Platelet Count 133 x10^3/uL (140-400) Neutrophils (%) (Auto) 70 % (31-73) Lymphocytes (%) (Auto) 16 % (24-48) Monocytes (%) (Auto) 12 % (0-9) Eosinophils (%) (Auto) 2 % (0-3) Basophils (%) (Auto) 1 % (0-3) Neutrophils # (Auto) 5.2 x10^3/uL (1.8-7.7) Lymphocytes # (Auto) 1.2 x10^3/uL (1.0-4.8) Monocytes # (Auto) 0.8 x10^3/uL (0.0-1.1) Eosinophils # (Auto) 0.1 x10^3/uL (0.0-0.7) Basophils # (Auto) 0.0 x10^3/uL (0.0-0.2) Sodium Level 138 mmol/L (136-145) Potassium Level 4.3 mmol/L (3.5-5.1) Chloride Level 105 mmol/L (98-107) Carbon Dioxide Level 28 mmol/L (21-32) Anion Gap 5 (6-14) Blood Urea Nitrogen 16 mg/dL (8-26) Creatinine 1.0 mg/dL (0.7-1.3) Estimated GFR (Cockcroft-Gault) 71.5 Glucose Level 94 mg/dL (70-99) Calcium Level 7.6 mg/dL (8.5-10.1) Magnesium Level 2.1 mg/dL (1.8-2.4) Assessment and Plan Assessmemt and Plan Problems Medical Problems: (1) Closed right hip fracture Status: Acute (2) Fall Status: Acute Comment Review of Relevant I have reviewed the following items duncan (where applicable) has been applied. Justifications for Admission Other Justification Hip Fracture SASHA PERKINS MD August 11, 2021 15:27
[2021-08-11 19:36] VITALS: BP 147/75
[2021-08-11 23:00] VITALS: BP 160/89
[2021-08-12] MEDS: oxyCODONE/APAP 5/325 1 TAB TABLET PO PRN ×4 (01:06→20:06)
[2021-08-12] MEDS: ZOLPIDEM 5 MG TABLET. PO PRN ×2 (01:06→20:05)
[2021-08-12 03:00] VITALS: BP 150/63
[2021-08-12] MEDS: IV NORMAL SALINE 1000ML BAG 1,000 ML IV SCH ×2 (04:30→05:50)
[2021-08-12 05:38] LABS: HEMATOCRIT 39.9 % (39.0-53.0); HEMOGLOBIN 13.5 g/dL (13.0-17.5)
[2021-08-12 07:00] VITALS: BP 140/76
--- NOTE | 2021-08-12 07:27 | PDOC ---
PROGRESS NOTES Date of Service DATE: 08/12/21 TIME: 07:26 Subjective Subjective POD #4 s/p R hip hemiarthroplasty Patient seen and examined this morning. Laying supine in bed. Pain appears to be controlled. Denies chest pain or shortness of breath. No abdominal pain or discomfort. Tolerating p.o. intake postoperatively. No acute events overnight. Objective Vital Signs Vital Signs Date Time Temp Pulse Resp B/P (MAP) Pulse Ox O2 Delivery O2 Flow Rate FiO2 08/12/21 03:00 98.1 90 18 150/63 (92) 90 Room Air 98.1 08/11/21 07:35 2.0 Physical Exam Orthopedic examination right lower extremity: Skin is warm and dry. Surgical dressing intact over the posterior lateral aspect of the right hip. No drainage noted. Compartments are throughout lower extremity are soft and compressible. Cap refill brisk. Right lower extremity is warm and well-perfused. Wiggles toes on command. EHL/FHL intact. Plantarflexion/dorsiflexion intact. Calf nontender. No pain with passive stretch. Dysthetic sensation to light touch diffusely throughout the right lower extremity. No evidence of thrombus. Labs Laboratory Tests Test 08/10/21 08:10 08/11/21 08:20 08/12/21 05:05 White Blood Count 10.1 x10^3/uL (4.0-11.0) 7.4 x10^3/uL (4.0-11.0) Red Blood Count 4.30 x10^6/uL (4.30-5.70) 4.41 x10^6/uL (4.30-5.70) Hemoglobin 13.7 g/dL (13.0-17.5) 14.0 g/dL (13.0-17.5) 13.5 g/dL (13.0-17.5) Hematocrit 40.3 % (39.0-53.0) 41.2 % (39.0-53.0) 39.9 % (39.0-53.0) Mean Corpuscular Volume 94 fL (79-100) 93 fL (79-100) Mean Corpuscular Hemoglobin 32 pg (25-35) 32 pg (25-35) Mean Corpuscular Hemoglobin Concent 34 g/dL (31-37) 34 g/dL (31-37) 34 g/dL (31-37) Red Cell Distribution Width 13.2 % (11.5-14.5) 13.1 % (11.5-14.5) Platelet Count 138 x10^3/uL (140-400) 133 x10^3/uL (140-400) Neutrophils (%) (Auto) 76 % (31-73) 70 % (31-73) Lymphocytes (%) (Auto) 13 % (24-48) 16 % (24-48) Monocytes (%) (Auto) 11 % (0-9) 12 % (0-9) Eosinophils (%) (Auto) 1 % (0-3) 2 % (0-3) Basophils (%) (Auto) 0 % (0-3) 1 % (0-3) Neutrophils # (Auto) 7.7 x10^3/uL (1.8-7.7) 5.2 x10^3/uL (1.8-7.7) Lymphocytes # (Auto) 1.3 x10^3/uL (1.0-4.8) 1.2 x10^3/uL (1.0-4.8) Monocytes # (Auto) 1.1 x10^3/uL (0.0-1.1) 0.8 x10^3/uL (0.0-1.1) Eosinophils # (Auto) 0.1 x10^3/uL (0.0-0.7) 0.1 x10^3/uL (0.0-0.7) Basophils # (Auto) 0.0 x10^3/uL (0.0-0.2) 0.0 x10^3/uL (0.0-0.2) Sodium Level 136 mmol/L (136-145) 138 mmol/L (136-145) Potassium Level 4.6 mmol/L (3.5-5.1) 4.3 mmol/L (3.5-5.1) Chloride Level 104 mmol/L (98-107) 105 mmol/L (98-107) Carbon Dioxide Level 28 mmol/L (21-32) 28 mmol/L (21-32) Anion Gap 4 (6-14) 5 (6-14) Blood Urea Nitrogen 19 mg/dL (8-26) 16 mg/dL (8-26) Creatinine 1.3 mg/dL (0.7-1.3) 1.0 mg/dL (0.7-1.3) Estimated GFR (Cockcroft-Gault) 52.9 71.5 Glucose Level 109 mg/dL (70-99) 94 mg/dL (70-99) Calcium Level 7.6 mg/dL (8.5-10.1) 7.6 mg/dL (8.5-10.1) Magnesium Level 1.9 mg/dL (1.8-2.4) 2.1 mg/dL (1.8-2.4) Laboratory Tests Test 08/11/21 08:20 08/12/21 05:05 White Blood Count 7.4 x10^3/uL (4.0-11.0) Red Blood Count 4.41 x10^6/uL (4.30-5.70) Hemoglobin 14.0 g/dL (13.0-17.5) 13.5 g/dL (13.0-17.5) Hematocrit 41.2 % (39.0-53.0) 39.9 % (39.0-53.0) Mean Corpuscular Volume 93 fL (79-100) Mean Corpuscular Hemoglobin 32 pg (25-35) Mean Corpuscular Hemoglobin Concent 34 g/dL (31-37) 34 g/dL (31-37) Red Cell Distribution Width 13.1 % (11.5-14.5) Platelet Count 133 x10^3/uL (140-400) Neutrophils (%) (Auto) 70 % (31-73) Lymphocytes (%) (Auto) 16 % (24-48) Monocytes (%) (Auto) 12 % (0-9) Eosinophils (%) (Auto) 2 % (0-3) Basophils (%) (Auto) 1 % (0-3) Neutrophils # (Auto) 5.2 x10^3/uL (1.8-7.7) Lymphocytes # (Auto) 1.2 x10^3/uL (1.0-4.8) Monocytes # (Auto) 0.8 x10^3/uL (0.0-1.1) Eosinophils # (Auto) 0.1 x10^3/uL (0.0-0.7) Basophils # (Auto) 0.0 x10^3/uL (0.0-0.2) Sodium Level 138 mmol/L (136-145) Potassium Level 4.3 mmol/L (3.5-5.1) Chloride Level 105 mmol/L (98-107) Carbon Dioxide Level 28 mmol/L (21-32) Anion Gap 5 (6-14) Blood Urea Nitrogen 16 mg/dL (8-26) Creatinine 1.0 mg/dL (0.7-1.3) Estimated GFR (Cockcroft-Gault) 71.5 Glucose Level 94 mg/dL (70-99) Calcium Level 7.6 mg/dL (8.5-10.1) Magnesium Level 2.1 mg/dL (1.8-2.4) Assessment Assessment 80 y/o M s/p GLF R closed displaced femoral neck fx * s/p R hip hemiarthroplasty 08/08 - Juliet * WBAT RLE * Anterior lateral hip precautions to include no extension past neutral, no adduction past midline, no external rotation past neutral x6 weeks. * PT/OT for mobilization, gait training and fall prevention * ICE operative extremity prn * Maintain surgical dressing; re-enforce as needed * Encourage use of IS while awake * DVT ppx (Lovenox); from an orthopedic standpoint would recommend DVT prophylaxis with Lovenox or other form of oral anticoagulation for a total of 4 weeks postoperatively. * Post-op abx complete * Hgb 13.5 post-op 08/12; VSS * CM for discharge planning; patient living at home independently prior to hospitalization. Anticipate he will likely require rehab versus skilled placement on discharge. Discharge arrangements pending. * Follow-up with orthopedics in 1-2 weeks on discharge from the hospital. Call to schedule appointment prior to discharge.[phone] Justicifation of Admission Dx: Justifications for Admission: Justification of Admission Dx: Yes LAURE HENSON August 12, 2021 07:27
[2021-08-12] MEDS: TAMSULOSIN 0.4 MG CAP.ER.24H. PO SCH (08:26)
[2021-08-12] MEDS: LORazepam 0.5 MG TABLET PO PRN ×2 (08:26→13:45)
[2021-08-12 11:00] VITALS: BP 156/79
[2021-08-12] MEDS: ENOXAPARIN 40 MG/0.4 ML SYRINGE. SQ SCH (11:19)
[2021-08-12 15:00] VITALS: BP 161/88
--- NOTE | 2021-08-12 18:07 | PATHOLOGY ---
[facility] Accession Number: [id number] . 01 Material submitted: . femur - RIGHT FEMORAL HEAD GROSS ONLY . 01 Clinical history: . R HIP FX R HIP HEMIARTHROPLASTY FALL ON HIP . 02 Diagnosis: Femoral head and separate segment of bone, right hip hemiarthroplasty: - Focal fragmentation of bony trabeculae and recent intertrabecular hemorrhage consistent with fracture. - Degenerative arthritis. (JPM:[place]; 08/12/2021) S 08/12/2021 1241 Local . 02 Comment: There is no evidence of malignancy. (JPM:[place]; 08/12/2021) . 02 Electronically signed: . Raul Rubio MD, Pathologist NPI- [id number] . 01 Gross description: . The specimen is received in formalin, labeled "Praveen Escobar, right femoral head". Received is a femoral head with a detached femoral neck measuring 5.3 x 5.0 x 5.3 cm in aggregate dimensions. The articular surface is light acosta-yellow to dark acosta, smooth to roughened, and with no signs of eburnation but does display focal areas of erosion. The surface opposite to the articulating surface is dark brown-urban, hemorrhagic, roughened, and consistent with fracture. Sectioning reveals light acosta-yellow to dark brown and focally hemorrhagic cut surfaces with no grossly distinct nodules or lesions. The specimen is submitted representatively in cassette A1 to A2, following decalcification.([facility]; 08/11/2021) [facility] 08/12/2021 1239 Local . 02 Pathologist provided ICD-10: S72.091A, M16.11 . 02 CPT . 954192, 121500 Specimen Comment: A courtesy copy of this report has been sent to [phone], [phone] Specimen Comment: [phone], , Specimen Comment: Report sent to , DR NOYOLA, DR SANON / DR HALL Performed at: [address] [facility], [place] [id number] MD Jim Chow MD Phone: [phone] Performed at: [facility] [address], [place] [id number] MD Raul Rubio MD Phone: [phone]
[2021-08-12 19:00] VITALS: BP 186/93
--- NOTE | 2021-08-12 21:32 | PDOC ---
[facility] PROGRESS NOTE Date of Service DOS: DATE: 08/12/21 TIME: 21:31 Chief Complaint Chief Complaint Assessment/Plan Acute right femoral neck fracture status post mechanical fall status post right hemiarthroplasty on 08/08/2021 Obesity class II Urinary retention status post Bauer placement Bauer for the next 24 hours Flomax Ortho consult PT OT PO and IV pain control Lovenox for DVT prophylaxis, will deferred to orthopedics for outpatient DVT prophylaxis NPO CODE STATUS full Discussed with RN and SW Disposition inpatient management as above DPOA: Carley Escobar History of Present Illness History of Present Illness 80-year-old male with no significant past medical history comes in for right hip pain after he lost his balance and fell on his right side while he was try to get his newspaper. Denies any head trauma or loss of consciousness. Does not take any medications or see his primary doctor regularly. Denies any fevers, chest pain, abdominal pain, dizziness, syncope, palpitations, dysuria, hematuria or bloody stools. 08/09/2021 No acute events overnight. Patient seen examined bedside. Pain is well controlled. Patient is in good spirits. Pending PT OT evaluation. Will likely need rehab. Urinary retention reported by nurses staff. 1.4 L output from Bauer placement. 08/10/2021 No acute events overnight. Patient seen examined bedside. Adequate urine output through Bauer. Pain is well controlled. Tolerating diet. No bowel movement reported. DC Bauer today. Continue with Flomax. Patient's chart, labs, images were reviewed and discussed with RN 5/2 Patient evaluated examined at bedside. No major overnight events. Doing well this morning no complaints of pain. Enjoys working with therapy said that now agreeable to placement. COVID PCR positive however will have to wait 10 days from positive test. He understands this. Otherwise continue current. Discussed with bedside RN. 08/12 Patient evaluated examined at bedside. Still on COVID 10-day PCR wait. Pain well controlled. Interestingly he is requesting all his food be ground up and he be observed eating. On observation Liquids and solids no signs of aspiration. Otherwise continue current. D/c once able. Vitals/I&O Vitals/I&O: Vital Signs Date Time Temp Pulse Resp B/P (MAP) Pulse Ox O2 Delivery O2 Flow Rate FiO2 08/12/21 20:06 18 08/12/21 15:00 98.0 84 161/88 (112) 97 Room Air 98.0 08/11/21 07:35 2.0 I & O 08/11/21 08/11/21 08/12/21 15:00 23:00 07:00 Intake Total 450 ml 100 ml 100 ml Output Total 700 ml 800 ml Balance -250 ml 100 ml -700 ml Physical Exam General: Alert, Oriented X3, Cooperative, No acute distress Heart: Regular rate Abdomen: Soft, No tenderness Extremities: No cyanosis, No edema Skin: No breakdown, Other (No lacerations or abrasions are noted.) Labs Labs: Laboratory Tests Test 08/12/21 05:05 Hemoglobin 13.5 g/dL (13.0-17.5) Hematocrit 39.9 % (39.0-53.0) Mean Corpuscular Hemoglobin Concent 34 g/dL (31-37) Assessment and Plan Assessmemt and Plan Problems Medical Problems: (1) Closed right hip fracture Status: Acute (2) Fall Status: Acute Comment Review of Relevant I have reviewed the following items duncan (where applicable) has been applied. Justifications for Admission Other Justification Hip Fracture SASHA PERKINS MD August 12, 2021 21:32
[2021-08-12 23:00] VITALS: BP 144/82
[2021-08-13] MEDS: oxyCODONE/APAP 5/325 1 TAB TABLET PO PRN ×5 (00:01→20:39)
[2021-08-13] MEDS: IV NORMAL SALINE 1000ML BAG 1,000 ML IV SCH ×3 (00:53→20:30)
[2021-08-13 03:00] VITALS: BP_SYST 129; BP_SYST 167; BP_DIAS 101; BP_DIAS 84
[2021-08-13 07:20] VITALS: BP 152/62
[2021-08-13] MEDS: TAMSULOSIN 0.4 MG CAP.ER.24H. PO SCH (08:52)
--- NOTE | 2021-08-13 09:03 | NUR ---
Patient c/o difficulty swallowing. States food gets "stuck in throat" and he coughs. Notified Dr. Robert, diet changed to FLD. Gave patients medications and he drank water and did not have any difficulty. He states its food that gets stuck, and it's been happening for over 20 years but never went to doctor.
--- NOTE | 2021-08-13 09:53 | PDOC ---
[facility] [facility] PROGRESS NOTE Date of Service DOS: DATE: 08/13/21 TIME: 09:52 Chief Complaint Chief Complaint Assessment/Plan Acute right femoral neck fracture status post mechanical fall status post right hemiarthroplasty on 08/08/2021 Obesity class II Urinary retention status post Bauer placement Bauer for the next 24 hours Flomax Ortho consult PT OT PO and IV pain control Lovenox for DVT prophylaxis, will deferred to orthopedics for outpatient DVT prophylaxis NPO CODE STATUS full Discussed with RN and SW Disposition inpatient management as above DPOA: Carley Escobar History of Present Illness History of Present Illness 80-year-old male with no significant past medical history comes in for right hip pain after he lost his balance and fell on his right side while he was try to get his newspaper. Denies any head trauma or loss of consciousness. Does not take any medications or see his primary doctor regularly. Denies any fevers, chest pain, abdominal pain, dizziness, syncope, palpitations, dysuria, hematuria or bloody stools. 08/09/2021 No acute events overnight. Patient seen examined bedside. Pain is well controlled. Patient is in good spirits. Pending PT OT evaluation. Will likely need rehab. Urinary retention reported by nurses staff. 1.4 L output from Bauer placement. 08/10/2021 No acute events overnight. Patient seen examined bedside. Adequate urine output through Bauer. Pain is well controlled. Tolerating diet. No bowel movement reported. DC Bauer today. Continue with Flomax. Patient's chart, labs, images were reviewed and discussed with RN / Patient evaluated examined at bedside. No major overnight events. Doing well this morning no complaints of pain. Enjoys working with therapy said that now agreeable to placement. COVID PCR positive however will have to wait 10 days from positive test. He understands this. Otherwise continue current. Discussed with bedside RN. 08/12 Patient evaluated examined at bedside. Still on COVID 10-day PCR wait. Pain well controlled. Interestingly he is requesting all his food be ground up and he be observed eating. On observation Liquids and solids no signs of aspiration. Otherwise continue current. D/c once able. 08/13 Patient seen and examined at bedside. Hopeful for discharge to placement Wednesday will be out of COVID window then. Again reporting he is choking with solid foods. We will go ahead and switch him to full liquid diet. No signs of a spiration with this. If starts to not tolerate liquids will see if speech can evaluate. Otherwise continue current. Vitals/I&O Vitals/I&O: Vital Signs Date Time Temp Pulse Resp B/P (MAP) Pulse Ox O2 Delivery O2 Flow Rate FiO2 08/13/21 08:00 Room Air 08/13/21 07:20 98.8 67 20 152/62 (92) 95 98.8 I & O 0 08/12/21 08/12/21 08/13/21 15:00 23:00 07:00 Intake Total 100 ml 50 ml Output Total 400 ml 425 ml Balance 100 ml -350 ml -425 ml Physical Exam General: Alert, Oriented X3, Cooperative, No acute distress Heart: Regular rate Abdomen: Soft, No tenderness Extremities: No cyanosis, No edema Skin: No breakdown, Other (No lacerations or abrasions are noted.) Assessment and Plan Assessmemt and Plan Problems Medical Problems: (1) Closed right hip fracture Status: Acute (2) Fall Status: Acute Comment Review of Relevant I have reviewed the following items duncan (where applicable) has been applied. Justifications for Admission Other Justification Hip Fracture SASHA PERKINS MD August 13, 2021 09:53
[2021-08-13 11:45] VITALS: BP 140/75
[2021-08-13] MEDS: PANTOPRAZOLE 40 MG TABLET.DR. PO SCH (11:55)
[2021-08-13] MEDS: ENOXAPARIN 40 MG/0.4 ML SYRINGE. SQ SCH (11:55)
[2021-08-13 15:09] VITALS: BP 144/62
[2021-08-13 19:00] VITALS: BP 142/99
[2021-08-13] MEDS: ZOLPIDEM 5 MG TABLET. PO PRN ×2 (20:39→20:42)
[2021-08-14] VITALS (7 sets, daily range): BP systolic 139–194; BP diastolic 70–106
[2021-08-14] MEDS: fentaNYL PF VIAL 100 MCG/2 ML VIAL IVP PRN (01:49)
[2021-08-14] MEDS: diphenhydrAMINE 50 MG/ML VIAL IVP PRN (01:49)
[2021-08-14] MEDS: LORazepam 0.5 MG TABLET PO PRN (01:49)
[2021-08-14] MEDS: IV NORMAL SALINE 1000ML BAG 1,000 ML IV SCH ×3 (05:32→22:58)
[2021-08-14] MEDS: TAMSULOSIN 0.4 MG CAP.ER.24H. PO SCH (09:07)
[2021-08-14] MEDS: PANTOPRAZOLE 40 MG TABLET.DR. PO SCH (09:07)
[2021-08-14] MEDS: oxyCODONE/APAP 5/325 1 TAB TABLET PO PRN ×3 (09:08→20:01)
[2021-08-14] MEDS: ENOXAPARIN 40 MG/0.4 ML SYRINGE. SQ SCH (09:08)
--- NOTE | 2021-08-14 09:43 | PDOC ---
[facility] [facility] PROGRESS NOTE Date of Service DOS: DATE: 08/14/21 TIME: 09:42 Chief Complaint Chief Complaint Acute right femoral neck fracture status post mechanical fall status post right hemiarthroplasty on 08/08/2021 Obesity class II Urinary retention status post Bauer placement History of Present Illness History of Present Illness 08/14/2021 Patient seen and examined Discussed with case management Discussed with RN Chart reviewed The patient is awaiting discharge to [facility] but they cannot take him until 5 9 due to COVID positivity 80-year-old male with no significant past medical history comes in for right hip pain after he lost his balance and fell on his right side while he was try to get his newspaper. Denies any head trauma or loss of consciousness. Does not take any medications or see his primary doctor regularly. Denies any fevers, chest pain, abdominal pain, dizziness, syncope, palpitations, dysuria, hematuria or bloody stools. 08/09/2021 No acute events overnight. Patient seen examined bedside. Pain is well controlled. Patient is in good spirits. Pending PT OT evaluation. Will likely need rehab. Urinary retention reported by nurses staff. 1.4 L output from Bauer placement. 08/10/2021 No acute events overnight. Patient seen examined bedside. Adequate urine output through Bauer. Pain is well controlled. Tolerating diet. No bowel movement reported. DC Bauer today. Continue with Flomax. Patient's chart, labs, images were reviewed and discussed with RN 08/11 Patient evaluated examined at bedside. No major overnight events. Doing well this morning no complaints of pain. Enjoys working with therapy said that now agreeable to placement. COVID PCR positive however will have to wait 10 days from positive test. He understands this. Otherwise continue current. Discussed with bedside RN. 08/12 Patient evaluated examined at bedside. Still on COVID 10-day PCR wait. Pain well controlled. Interestingly he is requesting all his food be ground up and he be observed eating. On observation Liquids and solids no signs of aspiration. Otherwise continue current. D/c once able. 08/13 Patient seen and examined at bedside. Hopeful for discharge to placement Wednesday will be out of COVID window then. Again reporting he is choking with solid foods. We will go ahead and switch him to full liquid diet. No signs of aspiration with this. If starts to not tolerate liquids will see if speech can evaluate. Otherwise continue current. Vitals/I&O Vitals/I&O: Vital Signs Date Time Temp Pulse Resp B/P (MAP) Pulse Ox O2 Delivery O2 Flow Rate FiO2 08/14/21 08:00 Room Air 08/14/21 07:00 97.5 91 20 194/106 (135) 96 97.5 I & O 08/13/21 08/13/21 08/14/21 15:00 23:00 07:00 Intake Total 240 ml 50 ml Output Total 400 ml 600 ml 100 ml Balance -160 ml -550 ml -100 ml Physical Exam General: Alert, Oriented X3, Cooperative, No acute distress Heart: Regular rate Abdomen: Soft, No tenderness Extremities: No cyanosis, No edema Skin: No breakdown, Other (No lacerations or abrasions are noted.) Assessment and Plan Assessmemt and Plan Problems Medical Problems: (1) Closed right hip fracture Status: Acute (2) Fall Status: Acute Acute right femoral neck fracture status post mechanical fall status post right hemiarthroplasty on 08/08/2021 Obesity class II Urinary retention status post Bauer placement Plan We hope to discharge to [facility] on 08/18/2021 due to COVID positivity For now continue the following; Bauer for the next 24 hours Flomax Ortho consult PT OT PO and IV pain control Lovenox for DVT prophylaxis, will deferred to orthopedics for outpatient DVT prophylaxis NPO CODE STATUS full Discussed with RN and SW Disposition inpatient management as above DPOA: Carley Escobar Comment Review of Relevant I have reviewed the following items duncan (where applicable) has been applied. Medications: Current Medications Medications (Trade) Dose Ordered Sig/Mayra Route PRN Reason Start Time Stop Time Status Last Admin Dose Admin Pantoprazole Sodium (Protonix) 40 mg DAILYAC PO 08/13/21 11:30 08/14/21 09:07 Fentanyl Citrate (Fentanyl 2ml Vial) 50 mcg PRN Q2HR PRN IVP PAIN 08/13/21 20:00 08/14/21 01:49 Zolpidem Tartrate (Ambien) 5 mg PRN QHS PRN PO INSOMNIA 08/13/21 20:00 08/13/21 20:42 Justifications for Admission Other Justification Hip Fracture CASTYAKELIN,NIAL K III DO August 14, 2021 09:43
--- NOTE | 2021-08-14 09:58 | NUR ---
Notifid Dr. Dixon of patients elevated blood pressure, he stated he would order medication.
[2021-08-15] MEDS: ZOLPIDEM 5 MG TABLET. PO PRN ×2 (00:02→21:11)
[2021-08-15] MEDS: fentaNYL PF VIAL 100 MCG/2 ML VIAL IVP PRN ×3 (00:02→14:52)
[2021-08-15] MEDS: oxyCODONE/APAP 5/325 1 TAB TABLET PO PRN ×4 (02:17→21:12)
[2021-08-15 03:09] VITALS: BP 148/86
[2021-08-15 08:30] VITALS: BP 168/95
[2021-08-15] MEDS: TAMSULOSIN 0.4 MG CAP.ER.24H. PO SCH (09:16)
[2021-08-15] MEDS: PANTOPRAZOLE 40 MG TABLET.DR. PO SCH (09:16)
--- NOTE | 2021-08-15 10:06 | PDOC ---
[facility] [facility] PROGRESS NOTE Date of Service DOS: DATE: 08/15/21 TIME: 10:05 Chief Complaint Chief Complaint Acute right femoral neck fracture status post mechanical fall status post right hemiarthroplasty on 08/08/2021 Obesity class II Urinary retention status post Bauer placement History of Present Illness History of Present Illness 08/15/2021 Chart reviewed Discussed with case management Patient still awaiting discharge on 08/14/2021 Patient seen and examined Discussed with case management Discussed with RN Chart reviewed The patient is awaiting discharge to [facility] but they cannot take him until 08 18 due to COVID positivity 80-year-old male with no significant past medical history comes in for right hip pain after he lost his balance and fell on his right side while he was try to get his newspaper. Denies any head trauma or loss of consciousness. Does not take any medications or see his primary doctor regularly. Denies any fevers, chest pain, abdominal pain, dizziness, syncope, palpitations, dysuria, hematuria or bloody stools. 08/09/2021 No acute events overnight. Patient seen examined bedside. Pain is well controlled. Patient is in good spirits. Pending PT OT evaluation. Will likely need rehab. Urinary retention reported by nurses staff. 1.4 L output from Bauer placement. 08/10/2021 No acute events overnight. Patient seen examined bedside. Adequate urine output through Bauer. Pain is well controlled. Tolerating diet. No bowel movement reported. DC Bauer today. Continue with Flomax. Patient's chart, labs, images were reviewed and discussed with RN 08/11 Patient evaluated examined at bedside. No major overnight events. Doing well this morning no complaints of pain. Enjoys working with therapy said that now agreeable to placement. COVID PCR positive however will have to wait 10 days from positive test. He understands this. Otherwise continue current. Discussed with bedside RN. 08/12 Patient evaluated examined at bedside. Still on COVID 10-day PCR wait. Pain well controlled. Interestingly he is requesting all his food be ground up and he be observed eating. On observation Liquids and solids no signs of aspiration. Otherwise continue current. D/c once able. 08/13 Patient seen and examined at bedside. Hopeful for discharge to placement Wednesday will be out of COVID window then. Again reporting he is choking with solid foods. We will go ahead and switch him to full liquid diet. No signs of aspiration with this. If starts to not tolerate liquids will see if speech can evaluate. Otherwise continue current. Vitals/I&O Vitals/I&O: Vital Signs Date Time Temp Pulse Resp B/P (MAP) Pulse Ox O2 Delivery O2 Flow Rate FiO2 08/15/21 09:16 86 148/86 08/15/21 09:02 Room Air 08/15/21 08:30 98.9 22 93 98.9 I & O 08/14/21 08/14/21 08/15/21 15:00 23:00 07:00 Intake Total 110 ml 50 ml 340 ml Output Total 500 ml 550 ml Balance -390 ml 50 ml -210 ml Physical Exam General: No acute distress Heart: Regular rate Abdomen: Soft, No tenderness Extremities: No cyanosis, No edema Skin: No breakdown, Other (No lacerations or abrasions are noted.) Assessment and Plan Assessmemt and Plan Problems Medical Problems: (1) Closed right hip fracture Status: Acute (2) Fall Status: Acute Acute right femoral neck fracture status post mechanical fall status post right hemiarthroplasty on 08/08/2021 Obesity class II Urinary retention status post Bauer placement Plan We hope to discharge to [facility] on 08/18/2021 due to COVID positivity For now continue the following; Bauer for the next 24 hours Flomax Ortho consult PT OT PO and IV pain control Lovenox for DVT prophylaxis, will deferred to orthopedics for outpatient DVT prophylaxis NPO CODE STATUS full Discussed with RN and SW Disposition inpatient management as above DPOA: Carley Escobar Comment Review of Relevant I have reviewed the following items duncan (where applicable) has been applied. Medications: Current Medications Medications (Trade) Dose Ordered Sig/Mayra Route PRN Reason Start Time Stop Time Status Last Admin Dose Admin Amlodipine Besylate (Norvasc) 10 mg DAILY PO 08/14/21 10:30 08/15/21 09:16 Justifications for Admission Other Justification Hip Fracture CASTLE,NIAL K III DO August 15, 2021 10:06
[2021-08-15] MEDS: ENOXAPARIN 40 MG/0.4 ML SYRINGE. SQ SCH (11:39)
[2021-08-15 11:45] VITALS: BP 137/86
[2021-08-15] MEDS: IV NORMAL SALINE 1000ML BAG 1,000 ML IV SCH (12:33)
[2021-08-15 15:10] VITALS: BP 144/62
[2021-08-15 19:25] VITALS: BP 149/82
[2021-08-15 23:17] VITALS: BP 130/78
[2021-08-16] MEDS: oxyCODONE/APAP 5/325 1 TAB TABLET PO PRN ×5 (01:15→21:52)
[2021-08-16] MEDS: IV NORMAL SALINE 1000ML BAG 1,000 ML IV SCH ×3 (01:31→18:30)
--- NOTE | 2021-08-16 01:34 | NUR ---
Did not give Percocet at this time. Charting error
[2021-08-16 03:08] VITALS: BP 124/69
[2021-08-16 06:31] VITALS: BP 126/68
[2021-08-16] MEDS: TAMSULOSIN 0.4 MG CAP.ER.24H. PO SCH (08:36)
[2021-08-16] MEDS: PANTOPRAZOLE 40 MG TABLET.DR. PO SCH (08:37)
[2021-08-16 11:00] VITALS: BP 131/73
--- NOTE | 2021-08-16 11:22 | PDOC ---
[facility] [facility] PROGRESS NOTE Date of Service DOS: DATE: 08/16/21 TIME: 11:21 Chief Complaint Chief Complaint Acute right femoral neck fracture status post mechanical fall status post right hemiarthroplasty on 08/08/2021 Obesity class II Urinary retention status post Bauer placement History of Present Illness History of Present Illness 08/16 Evaluated examined at bedside. Clinically stable. No complaints to me. Should be able to discharge on Wednesday08/15/2021 Chart reviewed Discussed with case management Patient still awaiting discharge on 08/14/2021 Patient seen and examined Discussed with case management Discussed with RN Chart reviewed The patient is awaiting discharge to [facility] but they cannot take him until 08 18 due to COVID positivity 80-year-old male with no significant past medical history comes in for right hip pain after he lost his balance and fell on his right side while he was try to get his newspaper. Denies any head trauma or loss of consciousness. Does not take any medications or see his primary doctor regularly. Denies any fevers, chest pain, abdominal pain, dizziness, syncope, palpitations, dysuria, hematuria or bloody stools. 08/09/2021 No acute events overnight. Patient seen examined bedside. Pain is well controlled. Patient is in good spirits. Pending PT OT evaluation. Will likely need rehab. Urinary retention reported by nurses staff. 1.4 L output from [facility] placement. 08/10/2021 No acute events overnight. Patient seen examined bedside. Adequate urine output through Bauer. Pain is well controlled. Tolerating diet. No bowel movement reported. DC Bauer today. Continue with Flomax. Patient's chart, lab s, images were reviewed and discussed with RN 08/11 Patient evaluated examined at bedside. No major overnight events. Doing well this morning no complaints of pain. Enjoys working with therapy said that now agreeable to placement. COVID PCR positive however will have to wait 10 days from positive test. He understands this. Otherwise continue current. Discussed with bedside RN. 08/12 Patient evaluated examined at bedside. Still on COVID 10-day PCR wait. Pain well controlled. Interestingly he is requesting all his food be ground up and he be observed eating. On observation Liquids and solids no signs of aspiration. Otherwise continue current. D/c once able. 08/13 Patient seen and examined at bedside. Hopeful for discharge to placement Wednesday will be out of COVID window then. Again reporting he is choking with solid foods. We will go ahead and switch him to full liquid diet. No signs of aspiration with this. If starts to not tolerate liquids will see if speech can evaluate. Otherwise continue current. Vitals/I&O Vitals/I&O: Vital Signs Date Time Temp Pulse Resp B/P (MAP) Pulse Ox O2 Delivery O2 Flow Rate FiO2 08/16/21 10:20 18 Room Air 08/16/21 08:37 74 126/68 08/16/21 08:00 2.0 08/16/21 06:31 98.2 95 98.2 I & O 08/15/21 08/15/21 08/16/21 15:00 23:00 07:00 Intake Total 60 ml 480 ml Output Total 800 ml 300 ml 550 ml Balance -740 ml -300 ml -70 ml Physical Exam General: Alert, Oriented X3, Cooperative, No acute distress Heart: Regular rate Lungs: Clear Abdomen: Soft, No tenderness Extremities: No cyanosis, No edema Skin: No breakdown, Other (No lacerations or abrasions are noted.) Assessment and Plan Assessmemt and Plan Problems Medical Problems: (1) Closed right hip fracture Status: Acute (2) Fall Status: Acute Comment Review of Relevant I have reviewed the following items duncan (where applicable) has been applied. Justifications for Admission Other Justification Hip Fracture SASHA PERKINS MD August 16, 2021 11:22
[2021-08-16] MEDS: fentaNYL PF VIAL 100 MCG/2 ML VIAL IVP PRN ×2 (11:48→16:25)
[2021-08-16] MEDS: ENOXAPARIN 40 MG/0.4 ML SYRINGE. SQ SCH (11:48)
[2021-08-16 15:00] VITALS: BP 141/71
[2021-08-16 19:00] VITALS: BP 150/69
[2021-08-16] MEDS: ZOLPIDEM 5 MG TABLET. PO PRN (21:52)
[2021-08-16] MEDS: DOCUSATE SODIUM 100 MG CAPSULE. PO PRN (22:20)
[2021-08-16 23:00] VITALS: BP 163/83
[2021-08-17] MEDS: oxyCODONE/APAP 5/325 1 TAB TABLET PO PRN ×5 (01:45→21:44)
[2021-08-17 03:24] VITALS: BP 154/80
[2021-08-17] MEDS: fentaNYL PF VIAL 100 MCG/2 ML VIAL IVP PRN ×2 (04:14→14:10)
[2021-08-17 06:07] VITALS: BP 165/75
[2021-08-17] MEDS: IV NORMAL SALINE 1000ML BAG 1,000 ML IV SCH (07:31)
[2021-08-17] MEDS: PANTOPRAZOLE 40 MG TABLET.DR. PO SCH (07:31)
[2021-08-17] MEDS: TAMSULOSIN 0.4 MG CAP.ER.24H. PO SCH (07:31)
[2021-08-17 11:00] VITALS: BP 136/69
[2021-08-17] MEDS: ENOXAPARIN 40 MG/0.4 ML SYRINGE. SQ SCH (11:16)
--- NOTE | 2021-08-17 12:32 | PDOC ---
[facility] [facility] PROGRESS NOTE Date of Service DOS: DATE: 08/17/21 TIME: 12:31 Chief Complaint Chief Complaint Acute right femoral neck fracture status post mechanical fall status post right hemiarthroplasty on 08/08/2021 Obesity class II Urinary retention status post Bauer placement History of Present Illness History of Present Illness 08/17/2021 Patient seen and examined Discussed with RN Chart reviewed We plan to discharge tomorrow 08/16 Evaluated examined at bedside. Clinically stable. No complaints to me. Should be able to discharge on Wednesday08/15/2021 Chart reviewed Discussed with case management Patient still awaiting discharge on 08/14/2021 Patient seen and examined Discussed with case management Discussed with RN Chart reviewed The patient is awaiting discharge to [facility] but they cannot take him until 08 18 due to COVID positivity 80-year-old male with no significant past medical history comes in for right hip pain after he lost his balance and fell on his right side while he was try to get his newspaper. Denies any head trauma or loss of consciousness. Does not take any medications or see his primary doctor regularly. Denies any fevers, chest pain, abdominal pain, dizziness, syncope, palpitations, dysuria, hematuria or bloody stools. 08/09/2021 No acute events overnight. Patient seen examined bedside. Pain is well controlled. Patient is in good spirits. Pending PT OT evaluation. Will likely need rehab. Urinary retention reported by nurses staff. 1.4 L output from Bauer placement. 08/10/2021 No acute events overnight. Patient seen examined bedside. Adequate urine output through Bauer. Pain is well controlled. Tolerating diet. No bowel movement reported. DC Bauer today. Continue with Flomax. Patient's chart, labs, images were reviewed and discussed with RN 08/11 Patient evaluated examined at bedside. No major overnight events. Doing well this morning no complaints of pain. Enjoys working with therapy said that now agreeable to placement. COVID PCR positive however will have to wait 10 days from positive test. He understands this. Otherwise continue current. Discussed with bedside RN. 08/12 Patient evaluated examined at bedside. Still on COVID 10-day PCR wait. Pain well controlled. Interestingly he is requesting all his food be ground up and he be observed eating. On observation Liquids and solids no signs of aspiration. Otherwise continue current. D/c once able. 08/13 Patient seen and examined at bedside. Hopeful for discharge to placement Wednesday will be out of COVID window then. Again reporting he is choking with solid foods. We will go ahead and switch him to full liquid diet. No signs of aspiration with this. If starts to not tolerate liquids will see if speech can evaluate. Otherwise continue current. Vitals/I&O Vitals/I&O: Vital Signs Date Time Temp Pulse Resp B/P (MAP) Pulse Ox O2 Delivery O2 Flow Rate FiO2 08/17/21 11:45 18 08/17/21 11:16 Room Air 08/17/21 08:30 96 08/17/21 08:00 2.0 08/17/21 07:32 90 165/75 08/17/21 06:07 88.0 88.0 I & O 08/16/21 08/16/21 08/17/21 15:00 23:00 07:00 Intake Total 180 ml Output Total 350 ml 275 ml 300 ml Balance -350 ml -275 ml -120 ml Physical Exam General: Alert, Oriented X3, Cooperative, No acute distress Heart: Regular rate Lungs: Clear Abdomen: Soft, No tenderness Extremities: No cyanosis, No edema Skin: No breakdown, Other (No lacerations or abrasions are noted.) Assessment and Plan Assessmemt and Plan Problems Medical Problems: (1) Closed right hip fracture Status: Acute (2) Fall Status: Acute Acute right femoral neck fracture status post mechanical fall status post right hemiarthroplasty on 08/08/2021 Obesity class II Urinary retention status post Bauer placement Plan We hope to discharge to [facility] on 08/18/2021 due to COVID positivity For now continue the following; Bauer for the next 24 hours Flomax Ortho consult PT OT PO and IV pain control Lovenox for DVT prophylaxis, will deferred to orthopedics for outpatient DVT prophylaxis NPO CODE STATUS full Discussed with RN and SW Disposition inpatient management as above DPOA: Carley Escobar Comment Review of Relevant I have reviewed the following items duncan (where applicable) has been applied. Justifications for Admission Other Justification Hip Fracture WM GOEMS III DO August 17, 2021 12:32
[2021-08-17 15:00] VITALS: BP 140/71
[2021-08-17 19:00] VITALS: BP 130/74
[2021-08-17] MEDS: ZOLPIDEM 5 MG TABLET. PO PRN (21:43)
[2021-08-17] MEDS: DOCUSATE SODIUM 100 MG CAPSULE. PO PRN (21:43)
[2021-08-17 22:58] VITALS: BP 171/87
[2021-08-18] MEDS: LORazepam 0.5 MG TABLET PO PRN (02:14)
[2021-08-18] MEDS: oxyCODONE/APAP 5/325 1 TAB TABLET PO PRN ×2 (02:14→07:48)
[2021-08-18 03:20] VITALS: BP 166/94
[2021-08-18 07:00] VITALS: BP 133/72
[2021-08-18] MEDS: PANTOPRAZOLE 40 MG TABLET.DR. PO SCH (07:46)
[2021-08-18] MEDS: TAMSULOSIN 0.4 MG CAP.ER.24H. PO SCH (08:36)
--- NOTE | 2021-08-18 09:27 | PDOC ---
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 Clinically stable. No complaints to me. Should be able to discharge on Wednesday08/15/2021 Chart reviewed Discussed with case management Patient still awaiting discharge on 08/14/2021 Patient seen and examined Discussed with case management Discussed with RN Chart reviewed The patient is awaiting discharge to [facility] but they cannot take him until 08 18 due to COVID positivity 80-year-old male with no significant past medical history comes in for right hip pain after he lost his balance and fell on his right side while he was try to get his newspaper. Denies any head trauma or loss of consciousness. Does not take any medications or see his primary doctor regularly. Denies any fevers, chest pain, abdominal pain, dizziness, syncope, palpitations, dysuria, hematuria or bloody stools. 08/09/2021 No acute events overnight. Patient seen examined bedside. Pain is well controlled. Patient is in good spirits. Pending PT OT evaluation. Will likely need rehab. Urinary retention reported by nurses staff. 1.4 L output from Bauer placement. 08/10/2021 No acute events overnight. Patient seen examined bedside. Adequate urine output through Bauer. Pain is well controlled. Tolerating diet. No bowel movement reported. DC Bauer today. Continue with Flomax. Patient's chart, labs, images were reviewed and discussed with RN 08/11 Patient evaluated examined at bedside. No major overnight events. Doing well this morning no complaints of pain. Enjoys working with therapy said that now agreeable to placement. COVID PCR positive however will have to wait 10 days from positive test. He understands this. Otherwise continue current. Discussed with bedside RN. 08/12 Patient evaluated examined at bedside. Still on COVID 10-day PCR wait. Pain well controlled. Interestingly he is requesting all his food be ground up and he be observed eating. On observation Liquids and solids no signs of aspiration. Otherwise continue current. D/c once able. 08/13 Patient seen and examined at bedside. Hopeful for discharge to placement Wednesday will be out of COVID window then. Again reporting he is choking with solid foods. We will go ahead and switch him to full liquid diet. No signs of aspiration with this. If starts to not tolerate liquids will see if speech can evaluate. Otherwise continue current. Vitals/I&O Vitals/I&O: Vital Signs Date Time Temp Pulse Resp B/P (MAP) Pulse Ox O2 Delivery O2 Flow Rate FiO2 08/18/21 08:40 77 133/72 08/18/21 07:00 98.1 18 97 Room Air 98.1 08/18/21 02:14 2.0 I & O 08/17/21 08/17/21 08/18/21 15:00 23:00 07:00 Intake Total 300 ml 500 ml Output Total 300 ml 400 ml Balance 0 ml 100 ml Physical Exam General: Alert, Oriented X3, Cooperative, No acute distress Heart: Regular rate Lungs: Clear Abdomen: Soft, No tenderness Extremities: No cyanosis, No edema Skin: No breakdown, Other (No lacerations or abrasions are noted.) Assessment and Plan Assessmemt and Plan Problems Medical Problems: (1) Closed right hip fracture Status: Acute (2) Fall Status: Acute Acute right femoral neck fracture status post mechanical fall status post right hemiarthroplasty on 08/08/2021 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 Justifications for Admission Other Justification Hip Fracture WM GOMES III DO August 18, 2021 09:27
[2021-08-18] MEDS ORDERED: LORA0.5T96 PO (09:34)
[2021-08-18] MEDS ORDERED: PANT40TA77 PO (09:34)
[2021-08-18] MEDS ORDERED: AMLO-187 PO (09:34)
[2021-08-18] MEDS ORDERED: OXYC1TAB15 PO (09:34)
[2021-08-18] MEDS ORDERED: TAMS0.4C97 PO (09:34)
--- NOTE | 2021-08-18 09:36 | SNU/HH DC ---
DISCHARGE ORDERS DISCHARGE INFORMATION: FINAL DIAGNOSIS Problems Medical Problems: (1) Closed right hip fracture Status: Acute (2) Fall Status: Acute CONDITION ON DISCHARGE: Stable CODE STATUS: Code Status: Full [facility]: SNF STAY <30 DAYS: Yes HOSPICE: HOSPICE: No HOSPICE EVAL & TREAT: No LTAC: ADMIT TO LTAC: No POST DISCHARGE ORDERS: DIET AFTER DISCHARGE: Cardiac TREATMENT/EQUIPMENT ORDERS: Physical Therapy For: Evalulation/Treatment Occupational Therapy For: Evaluation/Treatment DISCHARGE MEDICATIONS: Home Meds Active Scripts Pantoprazole Sodium (PANTOPRAZOLE SODIUM ) 40 Mg Tablet.dr, 40 MG PO DAILYAC for . for 30 Days, #30 TAB.SR Prov:CASTLE,NIAL K III DO 08/18/21 Lorazepam (ATIVAN) 0.5 Mg Tablet, 0.5 MG PO PRN Q6HRS PRN for ANXIETY / AGITATION for 14 Days, #30 TAB Prov:CASTLE,NIAL K III DO 08/18/21 Oxycodone/Apap 5-325 (PERCOCET 5-325 MG TABLET ) 1 Each Tablet, 2 TAB PO PRN Q4HRS PRN for MODERATE TO SEVERE PAIN for 14 Days, #30 TAB Prov:CASTLE,NIAL K III DO 08/18/21 Amlodipine Besylate (AMLODIPINE BESYLATE) 10 Mg Tablet, 10 MG PO DAILY for . for 30 Days, #30 TAB Prov:CASTLE,NIAL K III DO 08/18/21 Tamsulosin Hcl (FLOMAX) 0.4 Mg Cap.er.24h, 0.4 MG PO DAILY for . for 30 Days, #30 CAP.SR Prov:CASTLE,NIAL K III DO 08/18/21 CASTLE,NIAL K III DO August 18, 2021 09:36
[2021-08-18 11:00] VITALS: BP 133/82
[2021-08-18] MEDS: ENOXAPARIN 40 MG/0.4 ML SYRINGE. SQ SCH (11:00)
--- NOTE | 2021-08-18 13:02 | NUR ---
Patient discharged to [facility]. Taken out by wheelchair with transportation. Addendum: 08/18/21 at 1305 by MIREILLE JEFFERSON LPN LPN Patient discharged to [facility]. Taken out by wheelchair with transportation. Report called to [facility]
--- NOTE | 2021-08-20 21:21 | DS ---
DATE OF DISCHARGE: 08/18/2021 ADMISSION DIAGNOSIS: Fall with hip fracture. DISCHARGE DIAGNOSES: Postoperative day 10 right hip, it is called right PressFit hip hemiarthroplasty. HOSPITAL COURSE: The patient is a pleasant elderly male who fell and fractured his right hip. He was taken to the OR for the above procedure. Postoperatively, he was doing great, but then tested positive for COVID, although he was asymptomatic. We arranged for him to go to [facility], but they had to wait 10 days because of his COVID positivity. DISPOSITION: Skilled. ACTIVITY: As tolerated. DIET: Low sodium. DISCHARGE MEDICATIONS: Please see the [facility]AD. Amlodipine 10 a day, lorazepam 0.5 q.6 hours p.r.n., oxycodone 5 q.6 hours p.r.n., Protonix 40 a day and Flomax 0.4 a day. Total time 32 minutes. MAC/XANDER/RAJESH DR: Alix TID: [id number]
== END 2021-08-18 12:50 | DRG 521 ==
LOC: ER 07:03 → 4 NORTH 07:40
PROVIDERS: ADMIT Internal Medicine; ATTEND Internal Medicine
PROC: 0SRR0JA Replacement of Right Hip Joint, Femoral Surface with Synthetic Substitute, Uncemented, Open Approach (ICD-10-PCS; principal; 2021-08-08 11:45)
DX: S72.011A Unspecified intracapsular fracture of right femur, initial encounter for closed fracture (principal); U07.1 COVID-19; W01.0XXA Fall on same level from slipping, tripping and stumbling without subsequent striking against object, initial encounter; E66.9 Obesity, unspecified; Y93.89 Activity, other specified; Y92.89 Other specified places as the place of occurrence of the external cause; Y99.8 Other external cause status; Z68.34 Body mass index [BMI] 34.0-34.9, adult; R33.9 Retention of urine, unspecified
CPT/HCPCS: 36415; 70450; 71045; 72125; 72192; 73502; 73560; 80048; 80053; 83735; 83880; 84100; 85014; 85018; 85025; 85610; 87428; 88305; 88311; 90471; 90715; 93005; 96374; 96375; A4213; A4223; A4657; A4930; A6223; A6258; A6402; A6550; C1776; J0171; J0330; J0690; J0780; J1100; J1170; J1200; J1650; J1885; J2270; J2405; J2704; J2795; J3010; J7030; U0003; 97110-GP; 97116-GP; 97530-GO; 97530-GP; 97535-GO; 99285-25; G0378; Q0163